=== PATIENT | male | born 1980 | race Caucasian/White ===

== ENCOUNTER → 2017-10-29 | Outpatient (CLI) | payer OTHER | END | disposition home or self-care (01) | LOC: MRI 12:35 | DX: M48.02 Spinal stenosis, cervical region (principal); M50.30 Other cervical disc degeneration, unspecified cervical region; G95.89 Other specified diseases of spinal cord; R20.0 Anesthesia of skin; Z98.1 Arthrodesis status | CPT/HCPCS: 72141 ==

== ENCOUNTER → 2018-01-28 | Outpatient (CLI) | payer OTHER, MEDICARE ==
[~2018-01-28] MED LIST: IOHEXOL 180 MG/ML 10 ML VIAL.; methylPREDNISolone ACETATE 40 MG/ML VIAL.; methylPREDNISolone ACETATE 80 MG/ML VIAL.
== END | disposition home or self-care (01) ==
LOC: PNCL 10:39
DX: M50.121 Cervical disc disorder at C4-C5 level with radiculopathy (principal); M48.02 Spinal stenosis, cervical region; Z98.1 Arthrodesis status; G82.20 Paraplegia, unspecified; F17.220 Nicotine dependence, chewing tobacco, uncomplicated; Z90.49 Acquired absence of other specified parts of digestive tract; Z98.890 Other specified postprocedural states; Z79.899 Other long term (current) drug therapy; Z83.3 Family history of diabetes mellitus; Z82.49 Family history of ischemic heart disease and other diseases of the circulatory system; Z72.89 Other problems related to lifestyle; M47.22 Other spondylosis with radiculopathy, cervical region
CPT/HCPCS: 62321; J1030; J1040; Q9965

== ENCOUNTER → 2018-02-12 | Outpatient (CLI) | payer OTHER, MEDICARE ==
[~2018-02-12] MED LIST changes: +LIDOCAINE 1% PF 2 ML VIAL.
== END ==
LOC: PNCL 09:17
DX: M48.02 Spinal stenosis, cervical region (principal); M54.12 Radiculopathy, cervical region; M96.1 Postlaminectomy syndrome, not elsewhere classified; Z90.49 Acquired absence of other specified parts of digestive tract; Z98.1 Arthrodesis status; Z83.3 Family history of diabetes mellitus; Z82.49 Family history of ischemic heart disease and other diseases of the circulatory system; Z79.899 Other long term (current) drug therapy
CPT/HCPCS: 62321; J1030; J1040; Q9965

== ENCOUNTER → 2018-07-07 | Outpatient (CLI) | payer OTHER, MEDICARE ==
[~2018-07-07] MED LIST changes: +BACL10TA IT INFUSIO; +CITA40TA12 PO; +IBUP-1060 PO; +IBUP1TAB12 PO; -IOHEXOL 180 MG/ML 10 ML VIAL.; +IOHEXOL 180 MG/ML 10 ML VIAL. ONE; -LIDOCAINE 1% PF 2 ML VIAL.; +LIDOCAINE 1% PF 2 ML VIAL. ONE; +OXYB5TAB7 PO; -methylPREDNISolone ACETATE 40 MG/ML VIAL.; +methylPREDNISolone ACETATE 40 MG/ML VIAL. ONE; -methylPREDNISolone ACETATE 80 MG/ML VIAL.; +methylPREDNISolone ACETATE 80 MG/ML VIAL. ONE
--- NOTE | 2018-07-07 13:32 | PAIN ---
DATE OF SERVICE: 07/07/2018 PROGRESS NOTE FOR PAIN CLINIC DIAGNOSES: Cervical radiculopathy with cervical spinal stenosis and post-cervical laminectomy syndrome. HISTORY OF PRESENT ILLNESS: The patient is a 38-year-old male who returns for followup status post cervical epidural steroid injection x 1 on 01/28/2018. The patient is doing very well after that with good reduction in pain by about 75%. The patient reports the pain has been returning now over the past month or so in the base of the neck, right shoulder and right upper extremity with some numbness and tingling, also some burning and aching pain in the base of the neck, becoming more constant, worse with reaching with the right upper extremity or weightbearing, repetitive motions, greater raising above his head with his right arm. The patient reports the pain is 8 on a scale of 10 at its worst, 6 on average, 4 at its least and it is a 6 today. The patient describes it as becoming more constant. Again, burning and aching in the right upper extremity, radiating into the posterior aspect of the upper arm and posterior aspect of the forearm and some tingling in the hand occasionally, but not every day. The patient reports no significant loss of function of the right upper extremity, but significant fatigability. PHYSICAL EXAMINATION: VITAL SIGNS: Today, the patient's blood pressure is 123/84, pulse 88, respirations 16 and temperature is 98.0 degrees Fahrenheit. Weight is 215 pounds. GENERAL: The patient is awake, alert, oriented, appropriate, very pleasant demeanor. HEENT EXAMINATION: Shows normocephalic, atraumatic. Extraocular movements are intact and symmetrical. Oral cavity, mucous membranes moist and pink. Dentition is intact. NECK: Shows anterior throat supple, without palpable lymphadenopathy noted. Swallow reflex is symmetrical. CHEST: Shows normal with inspection. Breath sounds are clear to auscultation bilaterally. HEART: Shows S1, S2 clear. No murmurs auscultated. ABDOMEN: Soft, nontender and nondistended. BACK: Shows spine grossly in the midline. Normal-appearing cervical lordotic curvature and thoracic kyphotic curvature. Cervical paraspinous muscle shows symmetrical on inspection. On palpation, it has some moderate tenderness, but only diffusely in the inferior aspect of the cervical paraspinous musculature as well as superior medial trapezius on the right as well, but only very mildly tender. The patient has full rotational motion of the cervical spine, both laterally as well as extension and forward flexion, without significant difficulty or pain reported. EXTREMITIES: Upper extremities show deep tendon reflexes at 2+ in the biceps and triceps tendons. Motor exam is approximately 4 on a scale of 5, but equal and symmetrical dorsal foot with kiln placer strength, bicep and tricep flexion. Peripheral pulses are 2+ radial distribution. No peripheral edema is noted. Shoulder shrug is strong and intact, without loss of strength and resistance bilaterally. Options were discussed with the patient. The patient's old chart was reviewed as was his current medication regimen updated. Current review of systems updated today as well. We will proceed with a cervical epidural steroid injection, the second in this series with fluoroscopic guidance today. Risks were again discussed including, but not limited to bleeding, infection, possibility of epidural hematoma and subsequent neurological compromise, dural puncture, headaches, spinal cord and/or nerve damage, side effects of steroid medication and poor results regarding pain control. The patient understands and wishes to proceed. The patient will return to the clinic in approximately 2 weeks for followup. He was counseled on his return appointment, activity level and side effects to be aware of. DIAGNOSES: Cervical radiculopathy with cervical spinal stenosis and post-cervical laminectomy syndrome. PROCEDURE: Cervical epidural steroid injection, translaminar approach C6-C7 level using C-arm fluoroscopic guidance under sterile prep and drape using local anesthetic. MEDICATION INJECTED: A total of 120 mg Depo-Medrol plus 5 mL of preservative-free normal saline and 2 mL of Isovue for contrast. CONDITION AT DISCHARGE: Stable. The patient tolerated the procedure well, had no complications. PERRY TEJEDA MD DR: MADHURI/brittany JOB#: [id number] / [id number]
== END | disposition home or self-care (01) ==
LOC: PNCL 08:57
PROVIDERS: ATTEND Anesthesiology
DX: M48.02 Spinal stenosis, cervical region (principal); M54.12 Radiculopathy, cervical region; M96.1 Postlaminectomy syndrome, not elsewhere classified
CPT/HCPCS: 62321; J1030; J1040; Q9965

== ENCOUNTER → 2018-09-30 | Outpatient (CLI) | payer OTHER, MEDICARE ==
[~2018-09-30] MED LIST changes: -IOHEXOL 180 MG/ML 10 ML VIAL. ONE; -LIDOCAINE 1% PF 2 ML VIAL. ONE; -methylPREDNISolone ACETATE 40 MG/ML VIAL. ONE; -methylPREDNISolone ACETATE 80 MG/ML VIAL. ONE
--- NOTE | 2018-09-30 16:14 | PAIN ---
DATE OF SERVICE: 09/30/2018 DIAGNOSES: 1. Cervical radiculopathy with cervical spinal stenosis and post-cervical laminectomy syndrome. 2. Spasticity with intrathecal pump therapy. HISTORY OF PRESENT ILLNESS: The patient is a 38-year-old male who returns for followup status post cervical epidural steroid injections, last seen 07/07/2018, which the patient did very well with about 75% improvement, decreased pain in the right arm and neck. The patient reports that now is about 20% overall improvement, still doing well, still some pain in the base of the neck and right upper extremity. The patient reports pain is 8 on a scale of 10 at its worst, 5 on average and a 3 at its least. The patient reports it is tingling, burning, shooting, radiating, becoming more noticeable, more severe. The patient reports it is worse with activity, sleeping on his right side, reaching over his right arm, with repetitive motions such as steering or driving a car. The patient reports no new motor or sensory deficits, also complains of still some musculature tightness. The patient has a baclofen pump, which he refilled just about 3 weeks ago and his muscles feel tight that is not standard with the pump adjustment and requests interrogation and adjustment with that today as well with increased spasticity. PHYSICAL EXAMINATION: VITAL SIGNS: The patient's blood pressure 112/74, pulse 80, respirations 18, temperature is 97.6 degrees Fahrenheit. GENERAL: The patient is awake, alert, oriented, appropriate, very pleasant demeanor. The patient is accompanied by his spouse. HEENT: Shows normocephalic, atraumatic. Extraocular movements intact and symmetrical. Oral cavity: Mucous membranes moist and pink. Dentition is intact. NECK: Shows anterior throat supple without palpable lymphadenopathy noted. Swallow reflex is symmetrical. CHEST: Shows normal on inspection. Breath sounds are clear to auscultation bilaterally. HEART: Shows S1, S2 clear. No murmurs auscultated. ABDOMEN: Soft, nontender, nondistended. Easily palpable intrathecal pump is noted in the right lower quadrant with well-healed surgical scar as previously noted, which is mobile, but nontender. BACK: The patient's back shows grossly midline spine, normal-appearing cervical lordotic curvature and thoracic kyphotic curvature. Cervical paraspinous musculature shows symmetrical with inspection, with palpation shows some moderate tenderness diffusely in the inferior aspect of the paraspinous musculature bilaterally, slightly more on the right than the left into the superior trapezius, but without radiation, without trigger points. The patient has good rotational motion of cervical spine without difficulty as well. EXTREMITIES: The patient's upper extremities show deep tendon reflexes 2+ in the biceps and triceps tendons. Motor exam is a 4 on a scale of 5 with spouting installer strength, bicep and tricep flexion, but symmetrical. Peripheral pulses are 2+ radial distribution. No peripheral edema is noted bilaterally. Options were discussed with the patient. The patient's old chart was reviewed as his current medication regimen updated. Current review of systems updated today as well. We will interrogate the patient's intrathecal pump and make adjustments to increase the basal rate from 5 mcg per hour to 8 mcg per hour. Also, change the Flex programming for longer duration, instead of only 3 hours starting at 4:00 a.m., it will be 8 hours starting at 4:00 a.m. and instead of 3 hours starting at 7:00 p.m., it will be 5 hours starting at 7:00 p.m., for increased total daily dose from 137.9 mcg a day to 145.1 mcg per day. This will change the patient's refill date to 05/12/2019. The patient will be given a copy of the printout as well to keep with him for his pump adjustment and current settings. The patient will follow up in approximately 1 month or sooner if necessary for any additional adjustment. We will plan on cervical epidural steroid injection once the patient returns for the radicular pain. He will be out of town prior to that, and we will have him follow up once he returns and plan on cervical epidural steroid injection on his next visit. PERRY TEJEDA MD DR: MADHURI/brittany JOB#: [id number] / [id number]
== END | disposition home or self-care (01) ==
LOC: PNCL 13:18
PROVIDERS: ATTEND Anesthesiology
DX: M54.12 Radiculopathy, cervical region (principal); M48.02 Spinal stenosis, cervical region; M96.1 Postlaminectomy syndrome, not elsewhere classified; R25.2 Cramp and spasm
CPT/HCPCS: G0463

== ENCOUNTER → 2018-10-30 | Outpatient (CLI) | payer OTHER, MEDICARE ==
[2018-10-30 10:55] LABS: BASO % 1 % (0-3); EOS # 0.2 x10^3/uL (0.0-0.7); EOS % 4 % (0-3); HEMATOCRIT 42.7 % (39.0-53.0); HEMOGLOBIN 14.5 g/dL (13.0-17.5); LYMPH # 1.7 x10^3/uL (1.0-4.8); LYMPH % 31 % (24-48); MEAN CORPUSCULAR HEMOGLOBIN 31 pg (25-35); MEAN CORPUSCULAR HGB CONC 34 g/dL (31-37); MEAN CORPUSCULAR VOLUME 91 fL (79-100); MONO # 0.5 x10^3/uL (0.0-1.1); MONO % 9 % (0-9); NEUT # 3.1 x10^3uL (1.8-7.7); NEUT % 55 % (31-73); PLATELET COUNT 188 x10^3/uL (140-400); RED BLOOD COUNT 4.71 x10^6/uL (4.30-5.70); RED CELL DISTRIBUTION WIDTH 12.6 % (11.5-14.5); WHITE BLOOD COUNT 5.6 x10^3/uL (4.0-11.0)
[2018-10-30 16:14] LABS: FSH 3.5 mIU/mL (1.5-12.4); LUTEINIZING HORMONE 2.6 mIU/mL (1.7-8.6); PROLACTIN 8.1 ng/mL (4.0-15.2)
[2018-11-02 10:09] LABS: TESTOSTERONE FREE 5.38 ng/dL (5.00-21.00); TESTOSTERONE TOTAL 276 ng/dL (264-916)
== END | disposition home or self-care (01) ==
LOC: LAB 10:35
PROVIDERS: ATTEND Family Medicine
DX: E29.1 Testicular hypofunction (principal)
CPT/HCPCS: 36415; 82670; 83001; 83002; 84146; 84402; 84403; 85025

== ENCOUNTER → 2018-11-17 | Outpatient (CLI) | payer OTHER, MEDICARE ==
[~2018-11-17] MED LIST changes: +IOHEXOL 180 MG/ML 10 ML VIAL. ONE; +methylPREDNISolone ACETATE 40 MG/ML VIAL. ONE; +methylPREDNISolone ACETATE 80 MG/ML VIAL. ONE
--- NOTE | 2018-11-17 23:36 | PAIN ---
DATE OF SERVICE: 11/17/2018 PROGRESS NOTE FOR PAIN CLINIC DIAGNOSES: 1. Cervical radiculopathy with cervical spinal stenosis and post-cervical laminectomy syndrome. 2. Spasticity with intrathecal baclofen pump therapy. HISTORY OF PRESENT ILLNESS: The patient is a 38-year-old male who returns for followup status post pump reprogramming and returns today for a cervical epidural steroid injection we discussed on his last visit, did very well after the first injection with about 75% improvement initially in the right shoulder and arm. The patient reports pain is returning now, becoming more noticeable with repetitive motion of the right arm, transferring from bed to wheelchair, etc. The patient reports it is an 8 on a scale of 10 at its worst, 5 on average and 3 at its least and is a 3 today. The patient reports it is tingling, burning, sharp, shooting into the right arm, posterior shoulder, superior shoulder, lateral and posterior upper arm as well and some numbness and tingling in the right hand. The patient reports no new motor or sensory deficits and no new changes. Doing much better with the flex program, which we had started after his last pump programming and has quite pleased with that. The patient reports that her abilities with doing activities at home traveling with much greater ease and comfort, sleeping better at night. PHYSICAL EXAMINATION: VITAL SIGNS: The patient's blood pressure 129/82, pulse 90, respirations 20 and temperature 98.1 degrees Fahrenheit. Height is 6 feet 3 inches and weight is 220 pounds. GENERAL: The patient is awake, alert, oriented, appropriate and very pleasant demeanor. HEENT: Shows normocephalic and atraumatic. Extraocular movements are intact and symmetrical. Oral cavity: Mucous membranes moist and pink. Dentition is intact. NECK: Shows anterior throat supple without palpable lymphadenopathy noted. Swallow reflex symmetrical. CHEST: Shows normal with inspection. Breath sounds clear to auscultation bilaterally. HEART: Shows S1 and S2 clear. No murmurs auscultated. ABDOMEN: Soft, nontender and nondistended. No palpable organomegaly is noted. No rebound or guarding demonstrated. BACK: The patient's back shows spine grossly in the midline. Well-healed surgical scar is noted anterior aspect of the cervical spine as well as in the lumbar spine. Cervical paraspinous muscle shows symmetrical on inspection, with palpation shows some moderate tenderness but only diffusely, more on the right than the left in the inferior aspect of the cervical paraspinous muscles and superior medial trapezius without trigger points. The patient has full rotational motion of the cervical spine, both laterally as well as extension and flexion without significant difficulty or pain reported. EXTREMITIES: Upper extremities show deep tendon reflexes 2+ in the biceps and triceps tendons. Motor exam is approximately 4 on a scale of 5 but equal and symmetrical with some decreased strength in the right side greater than left with bouffant curtain machine tender strength only. Options were discussed with the patient. The patient's old chart was reviewed as well as his current medication regimen updated. Current review of systems updated today as well and we will proceed with a cervical epidural steroid injection today with fluoroscopic guidance. Risks were again discussed including, but not limited to bleeding, infection, possibility of epidural hematoma, subsequent neurological compromise, dural puncture, headaches, spinal cord and/or nerve damage, side effects of steroid medication and poor results regarding pain control. The patient understands and wished to proceed. The patient will return to the clinic in approximately 2 weeks for followup, was counseled as to return appointment, activity level and side effects to be aware of. The patient is also given refill prescription for hydrocodone 5/325, twenty tablets also baclofen 10 mg to use up to 4 times daily as needed for spasticity. DIAGNOSES: Cervical radiculopathy with cervical spinal stenosis and cervical post-laminectomy syndrome. PROCEDURE: Cervical epidural steroid injection, translaminar approach at C6-C7 level using C-arm fluoroscopic guidance under sterile prep and drape using local anesthetic. MEDICATION INJECTED: A total of 120 mg Depo-Medrol plus 5 mL of preservative-free normal saline and 2 mL of Isovue for contrast. CONDITION AT DISCHARGE: Stable. The patient tolerated the procedure well and had no complications. PERRY TEJEDA MD DR: MADHURI/brittany JOB#: [id number] / [id number]
== END | disposition home or self-care (01) ==
LOC: PNCL 10:35
PROVIDERS: ATTEND Anesthesiology
DX: M48.061 Spinal stenosis, lumbar region without neurogenic claudication (principal); M54.12 Radiculopathy, cervical region; M96.1 Postlaminectomy syndrome, not elsewhere classified
CPT/HCPCS: 62321; J1030; J1040; Q9965

== ENCOUNTER → 2019-01-12 | Outpatient (CLI) | payer OTHER, MEDICARE ==
[~2019-01-12] MED LIST changes: -IOHEXOL 180 MG/ML 10 ML VIAL. ONE; -methylPREDNISolone ACETATE 40 MG/ML VIAL. ONE; -methylPREDNISolone ACETATE 80 MG/ML VIAL. ONE
[2019-01-12 10:45] LABS: BASO % 1 % (0-3); EOS # 0.2 x10^3/uL (0.0-0.7); EOS % 4 % (0-3); HEMATOCRIT 41.9 % (39.0-53.0); HEMOGLOBIN 14.3 g/dL (13.0-17.5); LYMPH # 1.6 x10^3/uL (1.0-4.8); LYMPH % 28 % (24-48); MEAN CORPUSCULAR HEMOGLOBIN 31 pg (25-35); MEAN CORPUSCULAR HGB CONC 34 g/dL (31-37); MEAN CORPUSCULAR VOLUME 92 fL (79-100); MONO # 0.6 x10^3/uL (0.0-1.1); MONO % 10 % (0-9); NEUT # 3.4 x10^3uL (1.8-7.7); NEUT % 58 % (31-73); PLATELET COUNT 190 x10^3/uL (140-400); RED BLOOD COUNT 4.57 x10^6/uL (4.30-5.70); RED CELL DISTRIBUTION WIDTH 14.6 % (11.5-14.5); WHITE BLOOD COUNT 5.8 x10^3/uL (4.0-11.0)
[2019-01-12 11:08] LABS: ALBUMIN 4.4 g/dL (3.4-5.0); DIRECT BILIRUBIN 0.1 mg/dL (0.0-0.2); TOTAL BILIRUBIN 0.4 mg/dL (0.2-1.0); TOTAL PROTEIN 7.7 g/dL (6.4-8.2)
[2019-01-12 19:09] LABS: TESTOSTERONE TOTAL 252 ng/dL (264-916)
== END | disposition home or self-care (01) ==
LOC: LAB 10:24
PROVIDERS: ATTEND Urology
DX: E29.9 Testicular dysfunction, unspecified (principal)
CPT/HCPCS: 36415; 80076; 84403; 85025

== ENCOUNTER → 2019-05-19 | Outpatient (CLI) | payer OTHER, MEDICARE ==
[~2019-05-19] MED LIST changes: +BACLOFEN IT ONE; +[UNRECOGNIZED DRUG - OTHER] IT ONE
--- NOTE | 2019-05-20 01:59 | PAIN ---
DATE OF SERVICE: 05/19/2019 PROGRESS NOTE FOR PAIN CLINIC DIAGNOSES: 1. Cervical radiculopathy with cervical spinal stenosis, post-cervical laminectomy syndrome. 2. Spasticity with intrathecal pump treatment. HISTORY OF PRESENT ILLNESS: The patient is a 39-year-old male who returns for followup status post intrathecal pump refill and reprogramming with flex programming done. The patient reports that the flex programming is perfectly placed. He feels very good with the control of spasticity and has during the day as well as at night with the way to flex programming is program right now with the pump. The patient reports some pain in the base of the neck and right shoulder, otherwise doing very well with spasticity. The patient reports it is tingling, burning pain in the right shoulder and arm is becoming more constant with activity, better with the hydrocodone, however. The patient reports pain is 7 on a scale of 10 at its worst in the past week, 5 on average and 3 at its least and is a 3 today. The patient reports no new changes, no new motor or sensory deficits, no new spasticity issues, no new side effects from his pump or otherwise. PHYSICAL EXAMINATION: VITAL SIGNS: The patient's blood pressure is 116/70, pulse 77, respirations 18, temperature 97.8 degrees Fahrenheit, height is 6 feet 3 inches. GENERAL: The patient is awake, alert, oriented, appropriate, very pleasant demeanor. HEENT: Head is normocephalic and atraumatic. Extraocular movements are intact and symmetrical. Oral cavity: Mucous membranes moist and pink. Dentition intact. NECK: Shows anterior throat supple CHEST: Shows normal on inspection. Breath sounds clear to auscultation bilaterally. HEART: Shows S1, S2 clear. ABDOMEN: Soft, nontender, nondistended. Easily palpable intrathecal pump is noted in the right lower quadrant with well-healed surgical scar noted, which is mobile, but nontender. Options were discussed with the patient. The patient's old chart was reviewed as his current medication regimen updated. Current review of systems updated today as well. We will refill the patient's intrathecal pump with reprogramming for flex program as well as volume. Risks were discussed including, but not limited to bleeding, infection, possibility of intravascular injection or extravasation from the pump with resuscitative measures necessary. The patient understands as well as poor results regarding pain control. The patient understands and wished to proceed. The patient will return to clinic for a pump refill prior to 02/03/2020. Also discussed the estimated remaining life span of the pump, which is about 12 months, also had some choice in timing with getting the pump replaced. The patient will consider this as well prior to his next pump refill and will have that replaced within the year as well. The patient will follow up as necessary at this point and for refill as noted. DIAGNOSES: Spasticity with a cervical radiculopathy, cervical spinal stenosis, post-cervical laminectomy syndrome. PROCEDURE: Intrathecal pump refill and reprogramming under sterile prep and drape using a Mimoco kit, a 22-gauge noncutting needle, pump was entered without difficulty. 4 mL of the old medication was removed and discarded. 40 mL of the new medication containing baclofen 1000 mcg/mL was replaced in the pump. Sterile needle was withdrawn and bandage was applied. Pump was then reprogrammed to flex settings as well as volume. CONDITION AT DISCHARGE: Stable. The patient tolerated the procedure well, had no complications. PERRY TEJEDA MD DR: MADHURI/brittany JOB#: [id number] / [id number]
== END ==
LOC: PNCL 12:07
PROVIDERS: ATTEND Anesthesiology
DX: M50.10 Cervical disc disorder with radiculopathy, unspecified cervical region (principal); M48.02 Spinal stenosis, cervical region; M96.1 Postlaminectomy syndrome, not elsewhere classified
CPT/HCPCS: 95991; J0475

== ENCOUNTER → 2019-05-19 | Outpatient (CLI) | payer OTHER, MEDICARE ==
[~2019-05-19] MED LIST changes: -BACLOFEN IT ONE; -[UNRECOGNIZED DRUG - OTHER] IT ONE
[2019-05-20 03:08] LABS: ESTRADIOL LEVEL 31.1 pg/mL (7.6-42.6)
== END | disposition home or self-care (01) ==
LOC: LAB 12:23
PROVIDERS: ATTEND Family Medicine
DX: E29.1 Testicular hypofunction (principal)
CPT/HCPCS: 36415; 82670; 84402; 84403

== ENCOUNTER → 2019-10-14 | Outpatient (CLI) | payer OTHER, MEDICARE ==
[~2019-10-14] MED LIST changes: +CLOM50TA16 PO; +MELA10TA10 SL; +OXYB5TAB10 PO; -OXYB5TAB7 PO
[2019-10-14 10:55] LABS: HEMATOCRIT 44.6 % (39.0-53.0); HEMOGLOBIN 15.5 g/dL (13.0-17.5); RED BLOOD COUNT 5.2 x10^6/uL (4.30-5.70); RED CELL DISTRIBUTION WIDTH 13.2 % (11.5-14.5); WHITE BLOOD COUNT 5.6 x10^3/uL (4.0-11.0)
[2019-10-14 11:11] LABS: ALBUMIN 4.3 g/dL (3.4-5.0); ALBUMIN/GLOBULIN RATIO 1.7 (1.0-1.7); CALCIUM 9.2 mg/dL (8.5-10.1); GFR 84.1; POTASSIUM 4.1 mmol/L (3.5-5.1); TOTAL BILIRUBIN 0.5 mg/dL (0.2-1.0); TOTAL PROTEIN 6.9 g/dL (6.4-8.2)
[2019-10-14 11:12] LABS: CHOLESTEROL/HDL RATIO 5.6
== END | disposition home or self-care (01) ==
LOC: LAB 10:32
PROVIDERS: ATTEND Family Medicine
DX: N32.89 Other specified disorders of bladder (principal); F32.9 Major depressive disorder, single episode, unspecified; G89.29 Other chronic pain
CPT/HCPCS: 36415; 80053; 80061; 85027

== ENCOUNTER → 2019-10-14 | Outpatient (CLI) | payer OTHER, MEDICARE ==
--- NOTE | 2019-10-14 11:04 | PAIN ---
DATE OF SERVICE: 10/14/2019 PROGRESS NOTE FOR PAIN CLINIC DIAGNOSES: 1. Cervical radiculopathy with cervical spinal stenosis, post-cervical laminectomy syndrome. 2. Spasticity with intrathecal pump therapy. SUBJECTIVE: The patient is a 39-year-old male who returns for followup status post intrathecal pump interrogation and cervical epidural steroid injections. The patient was last seen, 05/19/2019 for intrathecal baclofen pump refill. The patient reports he is doing fairly well with this, has been on very stable regimen with the baclofen. He also has oral baclofen, which he can take occasionally, but generally is not needed. He is on the flex programming scheduled with the intrathecal pump. The patient reports still pain in the base of neck and right upper extremity, rated as 7 on a scale of 10. It is worst over the past week 4 and average 2 at its least and is 2 today. The patient reports it is sharp and shooting, tingling, burning, becoming more constant in the right arm. The patient reports no new motor or sensory deficits, however, still significant spasticity, which is well controlled with intrathecal pump of baclofen. The patient reports no new motor or sensory deficits, better with sitting or lying down, does not awaken him from sleep generally. PHYSICAL EXAMINATION: VITAL SIGNS: The patient's blood pressure 109/49, pulse 58, respirations 18, temperature 98.2 degrees Fahrenheit, height 6 feet 3 inches and weight is 210 pounds. GENERAL: The patient is awake, alert, oriented, appropriate, very pleasant demeanor. HEENT: Shows normocephalic, atraumatic. Extraocular movements are intact and symmetrical. Oral cavity: Mucous membranes are moist and pink. Dentition is intact. NECK: Shows anterior throat is supple without palpable lymphadenopathy noted. Swallow reflex symmetrical. CHEST: Shows normal on inspection. Breath sounds clear to auscultation bilaterally. HEART: Shows S1, S2 clear. No murmurs auscultated. ABDOMEN: Soft, nontender, nondistended. Easily palpable intrathecal pump in the right lower quadrant with well-healed surgical scars noted, it is nontender. BACK: The patient's back shows spine grossly in midline. Cervical paraspinous muscle shows symmetrical on inspection with palpation shows some moderate tenderness diffusely bilaterally going diffusely without significant radiation. The patient's back shows normal thoracic kyphosis, some minor flattening of lumbar lordotic curvature. EXTREMITIES: The patient's upper extremities show deep tendon reflexes 2+ in the biceps and triceps tendons. Motor exam is strong with approximately 4 on a scale of 5, but equal and symmetrical with paper bag maker strength, bicep and tricep flexion. Peripheral pulses are 2+ posterior tibial and 2+ radial. No peripheral edema is noted. PLAN: Options were discussed with the patient. The patient's old chart was reviewed as his current medication regimen updated. Current review of systems updated today as well and we will proceed with scheduling the patient for intrathecal pump replacement as on interrogation with the patient's pump today shows a 7-month or less of battery life remaining on intrathecal pump. We will schedule this with surgery within the next 3-4 weeks to have replaced with [employer] intrathecal pump for baclofen programming to be scheduled as well. The patient understands and agrees and will follow up once the surgical appointment is confirmed. The patient is going for pretesting as well for lab work today. Also, we will utilize those for his upcoming surgery as well. PERRY TEJEDA MD DR: MADHURI/brittany JOB#: [id number] / [id number]
== END | disposition home or self-care (01) ==
LOC: PNCL 09:03
PROVIDERS: ATTEND Anesthesiology
DX: M48.02 Spinal stenosis, cervical region (principal); M54.12 Radiculopathy, cervical region; M96.1 Postlaminectomy syndrome, not elsewhere classified; R25.2 Cramp and spasm
CPT/HCPCS: G0463

== ENCOUNTER 2019-11-06 10:34 | Day surgery (SDC) | payer OTHER, MEDICARE ==
[~2019-11-06 10:34] MED LIST changes: +BACLOFEN IT ONE; +HYDROmorphone 2 MG/ML VIAL IV PRN; +IV RINGERS,LACTATED 1000ML 1,000 ML IV SCH; +LIDOCAINE 1% PF 2 ML VIAL. ID PRN; +MORPHINE SULFATE 2 MG/ML VIAL. IV PRN; +ONDANSETRON PF 4 MG/2 ML VIAL. IV PRN; +PROCHLORPERAZINE 10 MG/2 ML VIAL. IV PRN; +[UNRECOGNIZED DRUG - OTHER] IT ONE; +fentaNYL PF VIAL 100 MCG/2 ML VIAL IV PRN
[2019-11-06] MEDS ORDERED: LIDOCAINE 1%/EPI 1:100,000 20 ML VIAL. ONE (11:05)
[2019-11-06] MEDS ORDERED: fentaNYL PF VIAL 100 MCG/2 ML VIAL ONE (11:32)
[2019-11-06] MEDS ORDERED: ONDANSETRON PF 4 MG/2 ML VIAL. ONE (11:32)
[2019-11-06] MEDS ORDERED: PROPOFOL 20 ML IV ONE (11:32)
[2019-11-06] MEDS ORDERED: LIDOCAINE 2% PF 5 ML VIAL. ONE (11:32)
[2019-11-06] MEDS ORDERED: DEXAMETHASONE SOD PHOS 4 MG/ML VIAL ONE (11:32)
[2019-11-06] MEDS ORDERED: MIDAZOLAM HCL/PF 2 MG/2 ML VIAL. ONE (11:33)
[2019-11-06] MEDS ORDERED: GLYCOPYRROLATE 1 MG/5 ML VIAL. ONE (11:49)
--- NOTE | 2019-11-06 13:15 | DISCH ---
DISCHARGE INSTRUCTIONS Condition on Discharge Condition on Discharge: Stable Activity After Discharge Activity Instructions for Disc: Activity as tolerated Lifting Instructions after Dis: No heavy lifting Driving Instructions after Dis: Do not drive today Diet after Discharge Diet after Discharge: Regular Wound Incision Care Wound/Incision Care: Reinforce dressing PRN Contacting the DR. after DC Call your doctor for: Concerns you may have PERRY TEJEDA MD Nov 06, 2019 13:15
[2019-11-06] MEDS: fentaNYL PF VIAL 100 MCG/2 ML VIAL IV PRN ×2 (13:26→13:42)
--- NOTE | 2019-11-06 13:36 | PDOC4 ---
OPERATIVE NOTE Date: Date: Nov 05, 2019 Pre-Op Diagnosis: Spasticity with intrathecal pump malfunction/end of battery life Post-Op Diagnosis: same Procedure Performed: Removal and replacement intrathecal pump Surgeon: Herson Anesthesia Type: General Blood Loss: approx. 10cc Specimans Obtained: old intrathecal pump Findings: see dictation #[id number] Complications: none Operative Note: see dictation PERRY TEJEDA MD Nov 06, 2019 13:36
[2019-11-06 13:50] VITALS: BP 113/58
--- NOTE | 2019-11-06 22:20 | OP ---
DATE OF SURGERY: 11/06/2019 PREOPERATIVE DIAGNOSES: Spasticity with intrathecal pump malfunction, end of battery life on implanted device. POSTOPERATIVE DIAGNOSES: Spasticity with intrathecal pump malfunction, end of battery life on implanted device. PROCEDURE: Removal and replacement of intrathecal pump. ANESTHESIA: General. BLOOD LOSS: Approximately 10 mL. COMPLICATIONS: None. DESCRIPTION OF PROCEDURE: The patient was consented for intrathecal pump removal and replacement. Risks were discussed with he and his spouse including, but not limited to bleeding, infection, possibility of extravasation of intrathecal pump material as well as poor function postoperatively and poor spasticity and pain control. The patient understands and wishes to proceed. The patient was taken to operating room #6 and general anesthesia was induced with the patient in the supine position with pressure points padded. The patient was prepped and draped in a sterile fashion allowing 3 minutes for the prep to dry prior to draping. The patient's left lower quadrant was examined with easily palpable intrathecal pump under prepped the area using 1% lidocaine without epinephrine. Area approximately 3 cm inferior to the preexisting abdominal scar was instilled with lidocaine and then using a 10 blade scalpel was incised through the area in a transverse oblique fashion underneath the existing scar over the intrathecal pump using both sharp and dull dissection and pressure and irrigation for control of local hemorrhage. The incision was extended down through the fascia to expose the intrathecal pump, which was exposed without difficulty. Sutures were cut anchoring the pump in the superior aspect in the pocket, scar tissue was removed with both blunt and dull dissection. The pump was expressed outside of the pocket cavity, examined and the intrathecal catheter was then removed with the quick release fitting with compression and twisting, came off without difficulty. Did show a good return of fluid from the catheter itself. No leaks. Catheter was examined without any defects identified. New pump was then primed and set with baclofen on current flex schedule programming for delivery, was then connected to the intrathecal catheter. Pocket was then irrigated with saline irrigation x 3. Examined without any local hemorrhage identified. New pump was placed into the pocket with the diaphragm facing outwards using a 0 silk suture x 2. The anchoring (on the superior aspect of the pump) was then sutured to the posterior aspect of the pocket wall in approximately 2 o'clock and 10 o'clock positions. The pocket was then closed with 2-0 Vicryl in an interrupted fashion for the deep fascia and then 3-0 Vicryl in a running fashion for the subcutaneous fascia and then 3-0 running Vicryl for skin closure with good opposition of the wound edges. Sterile bandages, Steri-Strip and island dressing were then applied. The patient tolerated procedure well, had no immediate complications and was transferred to the recovery room in awake, alert, and stable condition. The patient will follow up in approximately 1 week for wound check or sooner if necessary. PERRY TEJEDA MD DR: MADHURI/brittany JOB#: [id number] / [id number]
== END 2019-11-06 14:05 | disposition home or self-care (01) ==
LOC: SURG 10:34
PROVIDERS: ATTEND Anesthesiology
DX: T85.610A Breakdown (mechanical) of cranial or spinal infusion catheter, initial encounter (principal); F32.9 Major depressive disorder, single episode, unspecified; E66.9 Obesity, unspecified; Z68.37 Body mass index [BMI] 37.0-37.9, adult; Z90.49 Acquired absence of other specified parts of digestive tract; Y83.8 Other surgical procedures as the cause of abnormal reaction of the patient, or of later complication, without mention of misadventure at the time of the procedure; Y92.89 Other specified places as the place of occurrence of the external cause
CPT/HCPCS: 62362; A7015; C1772; J0475; J0696; J1100; J2001; J2250; J2405; J2704; J3010; J3490

== ENCOUNTER → 2019-11-13 | Outpatient (CLI) | payer OTHER, MEDICARE ==
[2019-11-06 13:50] VITALS: BP 113/58
[~2019-11-13] MED LIST changes: -BACLOFEN IT ONE; -HYDROmorphone 2 MG/ML VIAL IV PRN; -IV RINGERS,LACTATED 1000ML 1,000 ML IV SCH; -LIDOCAINE 1% PF 2 ML VIAL. ID PRN; -MORPHINE SULFATE 2 MG/ML VIAL. IV PRN; -ONDANSETRON PF 4 MG/2 ML VIAL. IV PRN; +OXYC1TAB19 PO; -PROCHLORPERAZINE 10 MG/2 ML VIAL. IV PRN; -[UNRECOGNIZED DRUG - OTHER] IT ONE; -fentaNYL PF VIAL 100 MCG/2 ML VIAL IV PRN
--- NOTE | 2019-11-13 12:25 | PAIN ---
DATE OF SERVICE: 11/13/2019 PROGRESS NOTE FOR PAIN CLINIC DIAGNOSES: 1. Cervical radiculopathy with cervical spinal stenosis, post-cervical laminectomy syndrome. 2. Spasticity with intrathecal pump baclofen therapy. HISTORY OF PRESENT ILLNESS: The patient is a 39-year-old male who returns for followup status post intrathecal pump replacement 1 week ago. The patient is doing very well, reports a significant improvement with the baclofen pump and no increased spasticity. The patient is still on a flex program with his intrathecal pump and doing very well, healing well with some incisional pain at the right lower quadrant at the site of the replacement of the pump, but otherwise no new changes or other concerns. The patient reports sore which is awakening him from sleep occasionally in the right lower quadrant, also some pain in the right arm and shoulder as he had previously. The patient reports the pain is 7 on a scale of 10 at its worst over the past week, 5 on average, 3 at its least and is a 5 today. The patient reports it is aching, sharp, tingling, burning in the arm and some aching in the abdomen from the incision. The patient reports no new motor or sensory deficits, no new changes. PHYSICAL EXAMINATION: VITAL SIGNS: His blood pressure is 115/79, pulse 84, respirations 20, temperature is 98.1, and weight is 204 pounds. GENERAL: The patient is awake, alert, oriented, appropriate, very pleasant demeanor. HEENT: Shows normocephalic and atraumatic. Extraocular movements are intact and symmetrical. Oral cavity shows mucous membranes moist and pink. Dentition is intact. NECK: Shows anterior throat is supple without palpable lymphadenopathy noted. Swallow reflex symmetrical. CHEST: Shows normal on inspection. Breath sounds are clear to auscultation bilaterally. HEART: Shows S1 and S2 clear. No murmurs auscultated. BACK: The patient's abdomen shows Steri-Strips on recent incision in the right lower quadrant with easily palpable intrathecal pump beneath which is nonerythematous, no discharge, no significant soreness or tenderness. No discoloration, no erythema or drainage. Steri-Strips are still in place and appears to be healing well at this time. PLAN: Options were discussed with the patient. The patient's old chart was reviewed as his current medication regimen updated. Current review of systems updated today as well and we will scan the patient's intrathecal pump today showing that refill be 07/02/2020. The patient will return in the meantime for cervical radiculopathy treatment if necessary. We would like to hold on this at this time and call for his next appointment. The patient will follow up with the pump or any complications of the wound or any questions on as needed basis at this time as well. PERRY TEJEDA MD DR: MADHURI/brittany JOB#: [id number] / [id number]
== END ==
LOC: PNCL 10:09
PROVIDERS: ATTEND Anesthesiology
DX: M54.12 Radiculopathy, cervical region (principal); M48.02 Spinal stenosis, cervical region; R25.2 Cramp and spasm
CPT/HCPCS: G0463

== ENCOUNTER 2020-02-12 09:34 | Emergency (ER) | payer OTHER, MEDICARE ==
[~2020-02-12] VITALS: Ht 190.5 cm; Wt 95.4 kg
[2020-02-12 09:36] VITALS: BP 118/64
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
[2020-02-12] MEDS ORDERED: CYCL5TAB PO (10:28)
== END 2020-02-12 10:33 | disposition home or self-care (01) ==
LOC: ER 09:34
DX: S29.012A Strain of muscle and tendon of back wall of thorax, initial encounter (principal); F32.9 Major depressive disorder, single episode, unspecified; Z98.890 Other specified postprocedural states; V49.9XXA Car occupant (driver) (passenger) injured in unspecified traffic accident, initial encounter; Y93.89 Activity, other specified; Y92.413 State road as the place of occurrence of the external cause; Y99.8 Other external cause status
CPT/HCPCS: 99283

== ENCOUNTER → 2020-06-01 | Outpatient (CLI) | payer OTHER, MEDICARE ==
[~2020-06-01] MED LIST changes: +CYCL5TAB PO; +DESV100T PO; +HYDR-2765 PO
--- NOTE | 2020-06-01 09:23 | PDOC ---
Progress Note - Pain Clinic Date of Service: DOS: DATE: 06/01/20 TIME: 09:17 Diagnosis: Dx: Radiculopathy with cervical spinal stenosis and cervical postlaminectomy syndrome Spasticity with intrathecal baclofen pump therapy History or Present Illness: HPI: 32-year-old male returns follow-up status post intrathecal pump management as well as cervical epidural steroid injections. Last seen November 13, 2019 after replacement of intrathecal pump. Patient reports he doing very well reports that over the past 4 weeks or so the pain is becoming more noticeable on the abdomen at the site of the pump itself and has had some skin breakdown over it as well over the past month or so. Patient reports he is treated this himself with some topical antibiotic ointments and bandages but is coming more painful and red around the lateral aspect of the pump. Reports no injury to the area of the abdomen or rubbing or anything that he can think of that may have caused some skin breakdown over the pump itself. Patient reports otherwise doing fairly well still some pain in the base of the neck and the right upper extremity but this is secondary to the abdominal pain and pump situation. Physical Exam: VS: Blood pressure is 120/76 pulse 76 respirations 18 temperature 97.9 F weight is 215 pounds PE: PHYSICAL EXAMINATION: GENERAL: The patient is awake, alert, oriented, appropriate, very pleasant demeanor, patient accompanied by his spouse. Patient is in wheelchair secondary to partial paralysis. HEENT: Shows normocephalic, atraumatic. Extraocular movements are intact and symmetrical. Oral cavity: Mucous membranes moist and pink. NECK: Shows anterior throat supple without palpable lymphadenopathy noted. Swallow reflex symmetrical. CHEST: Shows normal on inspection. Breath sounds are clear bilaterally. HEART: Shows S1, S2 clear. No murmurs auscultated. ABDOMEN: Soft, nontender, nondistended. No palpable organomegaly is noted. No rebound or guarding demonstrated. Patient has easily then a viable right lower quadrant intrathecal pump which shows some erythematous change on the lateral aspect of the pump edge itself. Is very tender with palpation and displacement of the pump on the lateral edge. He also has a healed scab over the lateral aspect of the pump as well. Patient shows no drainage with some mild erythema around the lateral edge only but not the medial edge. BACK: Shows spine grossly in the midline. Normal-appearing cervical lordotic curvature, cervical spine shows good rotation motion both laterally as well as extension flexion without significant increase in pain. There is slightly increased thoracic kyphosis, some minor flattening of the lumbar lordotic curvature. Lumbar paraspinous muscles show symmetrical on inspection, on palpation shows some moderate tenderness diffusely throughout the upper, middle and lower distribution of the paraspinous muscles bilaterally and also into the lower thoracic paraspinous musculature, firm and tender, but without specific trigger points, without radiation of pain. The patient has good rotational motion of the lumbar spine, both laterally as well as extension and flexion without significant difficulty. SKIN: Shows warm and dry, good turgor. No edema. Procedure: Procedure: Options were discussed with the patient, we will refer to wound care management for evaluation patient's abdominal wound. Also start on antibiotics Augmentin 500 mg 3 times daily orally. Patient give instructions to keep the area very c lean and dry without any excessive pressure or rubbing frictional forces over the area of the intrathecal pump. We will await wound care evaluation and proceed from there. Medication Injected: Med Injected: None Condition at Discharge: Condition at Discharge: Stable at discharge PERRY TEJEDA MD Jun 01, 2020 09:23
== END | disposition home or self-care (01) ==
LOC: PNCL 08:43
PROVIDERS: ATTEND Anesthesiology
DX: M48.02 Spinal stenosis, cervical region (principal); M96.1 Postlaminectomy syndrome, not elsewhere classified; M54.12 Radiculopathy, cervical region; R25.2 Cramp and spasm; Z79.899 Other long term (current) drug therapy
CPT/HCPCS: 99212; G0463

== ENCOUNTER → 2020-06-02 | Outpatient (CLI) | payer OTHER, MEDICARE | END | disposition home or self-care (01) | LOC: LAB 09:23 | PROVIDERS: ATTEND Anesthesiology | DX: Z01.812 Encounter for preprocedural laboratory examination (principal); Z20.828 Contact with and (suspected) exposure to other viral communicable diseases | CPT/HCPCS: 87426; U0003 ==

== ENCOUNTER 2020-06-03 10:45 | Day surgery (SDC) | payer OTHER, MEDICARE ==
[~2020-06-03 10:45] MED LIST changes: +BACITRACIN 50,000 UNIT in IV NORMAL SALINE 500ML BAG 500 ML IRR ONE; +HYDROmorphone 2 MG/ML VIAL IV PRN; +IV RINGERS,LACTATED 1000ML 1,000 ML IV SCH; +LIDOCAINE 1% PF 2 ML VIAL. ID PRN; +LIDOCAINE 1%/EPI 1:100,000 20 ML VIAL. ONE; +ONDANSETRON PF 4 MG/2 ML VIAL. IV PRN; +PROCHLORPERAZINE 10 MG/2 ML VIAL. IV PRN; +fentaNYL PF VIAL 100 MCG/2 ML VIAL IV PRN
[2020-06-03] MEDS ORDERED: PROPOFOL 10 MG/ML (20ML) VIAL. IV ONE (11:17)
[2020-06-03] MEDS ORDERED: MIDAZOLAM HCL/PF 2 MG/2 ML VIAL. ONE (11:18)
[2020-06-03] MEDS ORDERED: DEXAMETHASONE SOD PHOS 4 MG/ML VIAL ONE (11:18)
[2020-06-03] MEDS ORDERED: ONDANSETRON PF 4 MG/2 ML VIAL. ONE (11:18)
[2020-06-03] MEDS ORDERED: fentaNYL PF VIAL 100 MCG/2 ML VIAL ONE ×2 (11:18→16:10)
[2020-06-03] MEDS ORDERED: LIDOCAINE 2% PF 5 ML VIAL. ONE (11:18)
[2020-06-03] MEDS ORDERED: ROCURONIUM 50 MG/5 ML VIAL. ONE (12:32)
[2020-06-03] MEDS ORDERED: KETAMINE HCL IN NACL, ISO-OSM 50 MG/5 ML SYRINGE ONE (12:50)
[2020-06-03] MEDS ORDERED: PHENYLEPHRINE in 0.9% NACL PF 1 MG/10 ML SYRINGE. IV ONE (14:06)
[2020-06-03] MEDS ORDERED: ePHEDrine PF IN SALINE 50 MG/10 ML SYRINGE. IV ONE (14:06)
[2020-06-03] MEDS ORDERED: GLYCOPYRROLATE 1 MG/5 ML VIAL. ONE (14:09)
[2020-06-03] MEDS ORDERED: NEOSTIGMINE METHYLSULFATE 5 MG/5 ML SYRINGE. ONE (14:09)
[2020-06-03] MEDS ORDERED: SEVOFLURANE > 120 MINUTES. IH ONE (14:40)
[2020-06-03] MEDS ORDERED: BACITRACIN 50,000 UNIT in IV NORMAL SALINE 500ML BAG 500 ML IRR ONE (15:00)
--- NOTE | 2020-06-03 15:57 | DISCH ---
DISCHARGE INSTRUCTIONS Condition on Discharge Condition on Discharge: Stable Activity After Discharge Activity Instructions for Disc: Activity as tolerated Lifting Instructions after Dis: No heavy lifting Driving Instructions after Dis: Do not drive today Diet after Discharge Diet after Discharge: Regular Wound Incision Care Wound/Incision Care: Reinforce dressing PRN Contacting the DRBrandi after DC Call your doctor for: Concerns you may have PERRY TEJEDA MD Jun 03, 2020 15:57
[2020-06-03] MEDS: fentaNYL PF VIAL 100 MCG/2 ML VIAL IV PRN ×2 (16:12→16:18)
[2020-06-03] MEDS ORDERED: HYDROcodone/APAP 7.5/325MG 1 TAB TABLET PO ONE (16:15)
[2020-06-03] MEDS ORDERED: MORPHINE SULFATE 2 MG/ML VIAL. ONE (16:30)
--- NOTE | 2020-06-03 16:30 | PDOC4 ---
OPERATIVE NOTE Date: Date: Nov 05, 2019 Pre-Op Diagnosis: Spasticity Infected intrathecal pump Post-Op Diagnosis: Same Procedure Performed: Removal of infected intrathecal pump and catheter system Surgeon: Herson Anesthesia Type: General endotracheal tube Blood Loss: 100 mL's Specimans Obtained: Intrathecal pump and catheter Findings: See dictation Complications: None Operative Note: Patient was consented for removal intrathecal pump and catheter system with risks discussed including but not limited to bleeding infection possibility of increased pain and spasticity, continued infection and sepsis, complications from anesthetic, and poor results regarding spasticity and pain control. Patient understands wished to proceed. Patient taken to operating suite #8 and general endotracheal anesthesia anesthesia was induced. Patient was rolled to a prone position with all ASA monitors and breath sounds clear to auscultation bilaterally pressure points well-padded with neck shoulders upper and lower extremities in neutral and padded position. Patient's back was sterilely prepped and draped in the usual fashion. Using C-arm fluoroscopic guidance patient intrathecal catheter was identified at the insertion site in the patient's lumbar spine. At this time 1% lidocaine with 1-200,000 epinephrine was used to instill a vertical area ju and sutured tightly at this site. And sutured tightly at this site. Xtaposed the previous incisional scar left paramedian to the spine. Using a 10 blade scalpel incision was made through the anesthetized area of skin and continued down through subcutaneous tissue using both blunt and dull dissection at this point to identify the anchoring device for the intrathecal catheter. Local hemorrhage was controlled using electrocautery as well as irrigation and pressure. The catheter anchoring flange was identified isolated dissected and sutures removed anchoring it into the paraspinous musculature. Time the intrathecal catheter was identified going cephalad into the dura. It was verified on both AP and lateral views with C-arm fluoroscopy. Using a 0 silk suture a pursestring was placed around the existing intrathecal catheter and then the catheter was removed with the tip intact pursestring was then closed tightly at this site. The catheter was then cut at the distal end and removed. Wound was reinspected irrigated with bacitracin irrigation x3 reinspected once again found to have no local hemorrhaging the wound was then closed using 2-0 Vicryl in interrupted fashion for the subcutane ous tissues and a 3-0 Vicryl suture running fashion for skin closure. After soft, Steri-Strips were then applied and island dressing. At this time drapes were removed patient was rolled back onto bed next to the operating table and then transferred back to the operating room bed in a supine position. Breath sounds were again verified clear and bilateral ASA monitors remained intact throughout the transfer process. Patient was reprepped and redraped over the right abdomen in the usual fashion. Also operating surgeon myself and surgical instrument maker re-scrubbed and re-gowned and gloved. Patient's abdomen was then prepped and draped in usual fashion patient intrathecal pump which was very easily palpable with area of skin breakdown in the superior lateral margin was then again identified. Using 1% lidocaine with 1-200,000 epinephrine transverse area was anesthetized in the inferior aspect and medial aspect of the intrathecal pump itself. Incision was made using a 10 blade scalpel through the anesthetized area and dissected down further through the subcutaneous tissues to open the pocket and expressed the intrathecal pump which was identified without difficulty. This time the pump was expressed from the pocket and catheter was removed as well. Pocket was identified and inspected showing no abnormal signs of any infection extra fluid or pus within the pocket itself. Pocket was irrigated x3 with bacitracin irrigation. This time the pocket scar tissue was then resected and removed and the posterior and anterior area santoyo of the pocket itself. Local hemorrhaging controlled using electrocautery as well as pressure and irrigation. At this time the wound was then closed using 2-0 Vicryl in interrupted fashion for the subcutaneous tissues and 3-0 Vicryl running fashion for closure of the skin. Mastisol Steri-Strips, antibiotic impregnated bandage was then applied over the wound site. Patient tolerated the procedure well was transferred to the recovery room in good awake and stable condition. PERRY TEJEDA MD Jun 03, 2020 16:30
[2020-06-03] MEDS: MORPHINE SULFATE 2 MG/ML VIAL. IV PRN ×2 (16:34→16:40)
[2020-06-03 16:35] VITALS: BP 130/79
== END 2020-06-03 17:15 | disposition home or self-care (01) ==
LOC: SURG 10:45
PROVIDERS: ATTEND Anesthesiology
DX: T85.79XA Infection and inflammatory reaction due to other internal prosthetic devices, implants and grafts, initial encounter (principal); F32.9 Major depressive disorder, single episode, unspecified; Y83.8 Other surgical procedures as the cause of abnormal reaction of the patient, or of later complication, without mention of misadventure at the time of the procedure; Y92.89 Other specified places as the place of occurrence of the external cause; Z79.899 Other long term (current) drug therapy; Z83.3 Family history of diabetes mellitus
CPT/HCPCS: 62365; A7015; J1100; J2250; J2270; J2370; J2405; J2704; J2710; J3010; J3490; J7040; 76000; A4461

== ENCOUNTER → 2020-06-15 | Outpatient (CLI) | payer OTHER, MEDICARE ==
[2020-06-03 16:35] VITALS: BP 130/79
[~2020-06-15] MED LIST changes: -BACITRACIN 50,000 UNIT in IV NORMAL SALINE 500ML BAG 500 ML IRR ONE; -HYDROmorphone 2 MG/ML VIAL IV PRN; -IV RINGERS,LACTATED 1000ML 1,000 ML IV SCH; -LIDOCAINE 1% PF 2 ML VIAL. ID PRN; -LIDOCAINE 1%/EPI 1:100,000 20 ML VIAL. ONE; -ONDANSETRON PF 4 MG/2 ML VIAL. IV PRN; -PROCHLORPERAZINE 10 MG/2 ML VIAL. IV PRN; -fentaNYL PF VIAL 100 MCG/2 ML VIAL IV PRN
--- NOTE | 2020-06-15 14:53 | PDOC ---
Progress Note - Pain Clinic Date of Service: DOS: DATE: 06/15/20 TIME: 14:45 Diagnosis: Dx: Spasticity Cervical radiculopathy with cervical spinal stenosis and post cervical matute inectomy syndrome History or Present Illness: HPI: 40-year-old male returns for follow-up status post intrathecal pump erosion and removal on June 03, 2020. Patient had skin breakdown from his intrathecal pump pocket pump was then removed surgically as was the intrathecal catheter and patient returns for follow-up wound check today. Patient reports still significant pain in the abdomen at the site of the skin breakdown with some persistent drainage in the upper outer aspect of the pocket site from the intrathecal pump. Patient reports no fever at home, but persistent drainage in the upper outer aspect of the skin breakdown region. Patient has been seen by wound care and will be seen by wound care again today with the wound redressed. Physical Exam: VS: Blood pressure 114/75 pulse 108 respirations 18 temperature 90.1 F height is 6 feet 3 inches weight is 2 2 0 pounds PE: PHYSICAL EXAMINATION: GENERAL: The patient is awake, alert, oriented, appropriate, very pleasant demeanor,patient accompanied by his spouse. HEENT: Shows normocephalic, atraumatic. NECK: Shows anterior throat supple without palpable lymphadenopathy noted. Swallow reflex symmetrical. CHEST: Shows normal on inspection. Breath sounds are clear bilaterally. HEART: Shows S1, S2 clear. No murmurs auscultated. ABDOMEN: Soft, nondistended, surgical wound is easily identified in the right upper quadrant with persistent area of approximately 1/3 cm circular drainage site upper outer quadrant of the pump pocket area with some serosanguineous drainage persistent on wound change today. Significant tenderness and some indurated tissue surrounding the area of drainage is noted. BACK: Shows spine grossly in the midline. Healing surgical scar is noted in the midline at site of intrathecal pump catheter removal wound is clean and dry no erythema no tenderness no drainage. Normal-appearing cervical lordotic curvature. There is slightly increased thoracic kyphosis, some minor flattening of the lumbar lordotic curvature. Lumbar paraspinous muscles show symmetrical on inspection. The patient has good rotational motion of the lumbar spine, both laterally as well as extension and flexion without significant difficulty. No tenderness over the spinous processes, sacrum or sacroiliac regions. EXTREMITIES: Lower extremities show focal flaccidity with paraplegia. SKIN: Shows warm and dry, good turgor. Procedure: Procedure: 40-year-old male with recent intrathecal pump removal and catheter removal with good healing area in the posterior lumbar distribution however abdominal wound showing persistent drainage in the upper outer quadrant of the pump pocket. Plan: Wound care present at time of examination today with probing of the indurated draining area with expression of more fluid and pus containing exudate which was expressed through the drainage area and then packed and redressed. Wound will be repacked at home as patient's spouse is a registered nurse in approximately 3 days and will follow-up with wound clinic on Saturday, June 20 for reevaluation at that time. Patient will maintain on antibiotics currently taking Augmentin 3 times daily. Medication Injected: Med Injected: None Condition at Discharge: Condition at Discharge: Condition at discharge is stable PERRY TEJEDA MD Jun 15, 2020 14:53
== END | disposition home or self-care (01) ==
LOC: PNCL 13:29
PROVIDERS: ATTEND Anesthesiology
DX: M48.02 Spinal stenosis, cervical region (principal); M54.12 Radiculopathy, cervical region; F41.9 Anxiety disorder, unspecified; F32.9 Major depressive disorder, single episode, unspecified; Z79.899 Other long term (current) drug therapy; Z83.3 Family history of diabetes mellitus
CPT/HCPCS: 87071; 87075; 87077; 87186; 99212; G0463

== ENCOUNTER → 2020-09-02 | Outpatient (CLI) | payer OTHER, MEDICARE | LOC: LAB 11:59 | PROVIDERS: ATTEND Family Medicine | DX: E29.1 Testicular hypofunction (principal) | CPT/HCPCS: 82670; 84402; 84403 ==

== ENCOUNTER → 2020-11-08 | Outpatient (CLI) | payer OTHER, MEDICARE ==
--- NOTE | 2020-11-08 10:12 | PDOC ---
Progress Note - Pain Clinic Date of Service: DOS: DATE: 11/08/20 TIME: 10:08 Diagnosis: Dx: Spasticity Cervical radiculopathy with cervical spinal stenosis and cervical postlami nectomy syndrome History or Present Illness: HPI: 40-year-old male returns for follow-up status post intrathecal baclofen pump removal May 2020 after wound breakdown and infection. Patient has been managed on oral baclofen as well as Zanaflex and hydrocodone in the meantime is ports he doing fairly well with his but is not heavily at the level of decreased activity as he did with the intrathecal system. Secondary to his wound breakdown and infection we had him wait to 6 months before considering replacing the system and has been that time. At this point. Patient reports still spasticity in the low back and legs as well as some in the upper extremities fairly well controlled with the baclofen currently on oral basis. Patient reports still significant pain the base the neck and the right upper extremity and spasticity rated a 7 on scale 10 is worse over the past week 5 on average 3 days least is a 5 today patient ported tingling and burning in the arm as well on the right side and some sharp pain is on and off in intensity generally does not awaken her from sleep at night but can occasionally. Patient reports spasticity is his main complaint again fairly well controlled with the baclofen orally at this time but not to the level as it did intrathecally. Physical Exam: VS: Blood pressure is 97/66 pulse 71 respirations 18 temperature 90.2 F height is 6 feet 3 inches weight is 185 pounds PE: PHYSICAL EXAMINATION: GENERAL: The patient is awake, alert, oriented, appropriate, very pleasant demeanor, patient accompanied by his spouse HEENT: Shows normocephalic, atraumatic. Extraocular movements are intact and symmetrical. Oral cavity: Mucous membranes moist and pink. Dentition is intact. NECK: Shows anterior throat supple without palpable lymphadenopathy noted. Swallow reflex symmetrical. CHEST: Shows normal on inspection. Breath sounds are clear bilaterally. HEART: Shows S1, S2 clear. No murmurs auscultated. ABDOMEN: Soft, nontender, nondistended. No palpable organomegaly is noted. No rebound or guarding demonstrated. Well-healed surgical scar is noted in the right lower quadrant from previous intrathecal pump. BACK: Shows spine grossly in the midline. Normal-appearing cervical lordotic curvature. There is slightly increased thoracic kyphosis, some minor flattening of the lumbar lordotic curvature. Lumbar paraspinous muscles show symmetrical on inspection, on palpation shows some moderate tenderness diffusely throughout the upper, middle and lower distribution of the paraspinous muscles bilaterally without specific trigger points, without radiation of pain. The patient has good rotational motion of the lumbar spine, both laterally as well as extension and flexion without significant difficulty. No tenderness over the spinous processes, sacrum or sacroiliac regions. EXTREMITIES: Lower extremities with paraplegia as previously. Patient's lower extremities are equal in color and appearance. Peripheral pulses are 1+ posterior tibial, no peripheral edema is noted bilaterally. SKIN: Shows warm and dry, good turgor. No edema. No sores, rashes or bruising throughout. Procedure: Procedure: Options were discussed with the patient. Patient chart reviews her current medication regimen updated current review of systems updated today as well. We will make arrangements for replacement of the intrathecal system with the pump plan to be on the left abdominal wall and a 20 cc pump as the 40 cc previously had eroded through the skin on the right side due to patient's size and high activity level. Again it has been over 6 months now since previous system was removed and we will make arrangements for replacement of the baclofen intrathecal system pending. Medication Injected: Med Injected: None Condition at Discharge: Condition at Discharge: Condition at discharge stable. PERRY TEJEDA MD Nov 08, 2020 10:11
== END | disposition home or self-care (01) ==
LOC: PNCL 09:19
PROVIDERS: ATTEND Anesthesiology
DX: M48.02 Spinal stenosis, cervical region (principal); M54.12 Radiculopathy, cervical region; M96.1 Postlaminectomy syndrome, not elsewhere classified; R25.2 Cramp and spasm; F32.9 Major depressive disorder, single episode, unspecified; Z90.49 Acquired absence of other specified parts of digestive tract; Z98.890 Other specified postprocedural states; Z79.899 Other long term (current) drug therapy
CPT/HCPCS: 99212; G0463

== ENCOUNTER → 2020-11-29 | Outpatient (CLI) | payer OTHER, MEDICARE | LOC: LAB 09:38 | PROVIDERS: ATTEND Nurse Practitioner Family | DX: Z11.4 Encounter for screening for human immunodeficiency virus [HIV] (principal); Z11.3 Encounter for screening for infections with a predominantly sexual mode of transmission | CPT/HCPCS: 36415; 86592; 86703; 86704; 86803; 87340 ==

== ENCOUNTER → 2020-12-06 | Outpatient (CLI) | payer OTHER, MEDICARE ==
[~2020-12-06] MED LIST changes: +BACL10TA PO; +ESCITALOPRAM OX10 MG PO; +TIZA4TAB8 PO
--- NOTE | 2020-12-08 14:06 | PDOC ---
Progress Note - Pain Clinic Date of Service: DOS: DATE: 12/08/20 TIME: 14:01 Diagnosis: Dx: Spasticity Cervical radiculopathy with cervical spinal stenosis and cervical postlami nectomy syndrome History or Present Illness: HPI: 40-year-old male status post intrathecal baclofen pump removal May 2020 after wound breakdown and infection. Patient has been managed on oral baclofen as well as Zanaflex and hydrocodone in the meantime he reports he is doing fairly well with this but is not significantly decrease the spasticity at the level he had with his intrathecal system. Patient reports that he has been doing well otherwise. Secondary to patient's wound breakdown and infection we did have him wait 6 months before considering replacing the system and that has been elapsed at this point. Patient reports still spasticity in the low back and leg as well as some in the upper extremities fairly well controlled the baclofen currently on oral basis but not to the level it was with the intrathecal system. Patient reports pain worse in the base of the neck and right upper extremity and spasticity rated a 7 on a scale of 10 at its worst over the past week 5 on average and 3 at its least and is a 5 today. Patient reports no new motor or sensory deficits no new changes. Physical Exam: VS: Blood pressure 100/67 respirations 16 temperatures 98.2 F pulse of 77 height is 6 foot 3 inches weight is 185 pounds. PE: PHYSICAL EXAMINATION: GENERAL: The patient is awake, alert, oriented, appropriate, very pleasant demeanor HEENT: Shows normocephalic, atraumatic. Extraocular movements are intact and symmetrical. Oral cavity: Mucous membranes moist and pink. Dentition is intact. NECK: Shows anterior throat supple without palpable lymphadenopathy noted. Swallow reflex symmetrical. CHEST: Shows normal on inspection. Breath sounds are clear bilaterally. HEART: Shows S1, S2 clear. No murmurs auscultated. ABDOMEN: Soft, nontender, nondistended. No palpable organomegaly is noted. No rebound or guarding demonstrated. Well-healed surgical scarring in the right lower quadrant from previous intrathecal pump placements now well-healed and without any signs of infection no erythema tenderness or exudate. BACK: Shows spine grossly in the midline. Normal-appearing cervical lordotic curvature. There is slightly increased thoracic kyphosis, some minor flattening of the lumbar lordotic curvature. Lumbar paraspinous muscles show symmetrical on inspection, on palpation shows some moderate tenderness diffusely throughout the upper, middle and lower distribution of the paraspinous muscles without specific trigger points, without radiation of pain. The patient has good rotational motion of the lumbar spine, both laterally as well as extension and flexion without significant difficulty. EXTREMITIES: Lower extremities with paraplegia as on previous exam. Patient lower extremities are equal in color and appearance peripheral pulses are 1+ posterior tibial with no peripheral edema noted bilaterally. SKIN: Shows warm and dry, good turgor. No edema. No sores, rashes or bruising throughout. Procedure: Procedure: Options were discussed with the patient. Patient's chart was reviewed as was his current medication regimen updated and current review of systems updated. We will plan on intrathecal pump baclofen system replacement with intrathecal catheter as planned. Surgery currently scheduled for December 09, 2020. Medication Injected: Med Injected: None Condition at Discharge: Condition at Discharge: Stable PERRY TEJEDA MD Dec 08, 2020 14:06
== END | disposition home or self-care (01) ==
LOC: LAB 09:28
PROVIDERS: ATTEND Anesthesiology
DX: Z20.822 Contact with and (suspected) exposure to COVID-19 (principal); F32.9 Major depressive disorder, single episode, unspecified; Z90.49 Acquired absence of other specified parts of digestive tract; Z98.890 Other specified postprocedural states
CPT/HCPCS: U0003

== ENCOUNTER 2020-12-09 10:43 | Day surgery (SDC) | payer OTHER, MEDICARE ==
[~2020-12-09] VITALS: Ht 190.5 cm; Wt 83.9 kg
[~2020-12-09 10:43] MED LIST changes: +BACITRACIN 50,000 UNIT in IV NORMAL SALINE 500ML BAG 500 ML IRR ONE; +BACLOFEN IT ONE; +HYDROmorphone 2 MG/ML VIAL IVP PRN; +IV RINGERS,LACTATED 1000ML 1,000 ML IV SCH; +MORPHINE SULFATE 2 MG/ML VIAL. IVP PRN; +PROCHLORPERAZINE 10 MG/2 ML VIAL. IVP PRN; +[UNRECOGNIZED DRUG - OTHER] IT ONE; +ceFAZolin SODIUM IV Push 1 GM VIAL. IVP PRN; +fentaNYL PF VIAL 100 MCG/2 ML VIAL IVP PRN
[2020-12-09] MEDS ORDERED: MIDAZOLAM HCL/PF 2 MG/2 ML VIAL. ONE (11:49)
[2020-12-09] MEDS ORDERED: LIDOCAINE 1%/EPI 1:100,000 20 ML VIAL. ONE (12:16)
[2020-12-09] MEDS ORDERED: fentaNYL PF VIAL 100 MCG/2 ML VIAL ONE ×3 (12:46→15:49)
[2020-12-09] MEDS ORDERED: PHENYLEPHRINE in 0.9% NACL PF 1 MG/10 ML SYRINGE. IV ONE ×2 (12:58→12:59)
[2020-12-09] MEDS ORDERED: ONDANSETRON PF 4 MG/2 ML VIAL. ONE (12:59)
[2020-12-09] MEDS ORDERED: DEXAMETHASONE SOD PHOS 4 MG/ML VIAL ONE (12:59)
[2020-12-09] MEDS ORDERED: LIDOCAINE 2% PF 5 ML VIAL. ONE (12:59)
[2020-12-09] MEDS ORDERED: PROPOFOL 10 MG/ML (20ML) VIAL. IV ONE (12:59)
[2020-12-09] MEDS ORDERED: ePHEDrine PF IN SALINE 50 MG/10 ML SYRINGE. IV ONE (13:49)
--- NOTE | 2020-12-09 15:19 | DISCH ---
DISCHARGE INSTRUCTIONS Condition on Discharge Condition on Discharge: Stable Activity After Discharge Activity Instructions for Disc: Activity as tolerated Lifting Instructions after Dis: No heavy lifting Driving Instructions after Dis: Do not drive today Diet after Discharge Diet after Discharge: Regular Wound Incision Care Wound/Incision Care: Reinforce dressing PRN Contacting the DRBrandi after DC Call your doctor for: Concerns you may have PERRY TEJEDA MD Dec 09, 2020 15:19
--- NOTE | 2020-12-09 15:36 | PDOC4 ---
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
--- NOTE | 2020-12-09 15:37 | PDOC4 ---
PROCEDURE Procedure Patient was consented for intrathecal pump placement and intrathecal catheter placement. Risk were discussed including but not limited to bleeding infection possibility of epidural hematoma and subsequent neurological compromise dural puncture headache spinal cord and/or nerve damage, postoperative infection as well as poor results regarding pain control. Patient understands wishes to proceed. Patient was taken the operating suite and general anesthesia was induced. Patient was positioned on the operating bed with all pressure points padded in the right lateral decubitus position. Sterile prep and drape was carried out in the usual fashion. Using C-arm fluoroscopic guidance patient's lumbar spine was visualized in AP and lateral views and using a 18-gauge spinal needle, spinal tap was performed with out difficulty at the L 3-4 level, and with ease of cerebrospinal fluid flow. Intrathecal catheter was then placed through the spinal needle after stylet removal, and under direct visualization from fluoroscopy was advanced without difficulty or resistance to rest with the tip of the intrathecal catheter at the T1-2 intervertebral level and the spinal fluid. This was verified with both AP and lateral views with fluoroscopy. At this time the needle insertion was then extended using 10 blade scalpel above and below the spinal needle approximately 1 cm direction superiorly and inferiorly. Local hemorrhage was controlled using electrocautery as well as pressure and irrigation. The spinal catheter was then anchored using anchoring device and 0 silk suture to the paraspinous fascia. The stylette within the intrathecal catheter was maintained during this. To prevent any CSF flow. At this time patient's abdomen was then inspected and midway between the rib margin and iliac crest anteriorly, proximate 10 cm incision was made using 10 blade scalpel in a transverse fashion. Incision was extended into the subcutaneous tissue and fascial layer local hemorrhage was controlled using electrocautery as well as pressure and irrigation. Pocket was created using both blunt and dull dissection medially and slightly inferiorly towards the midline above the muscular fascia of the external oblique and the subcutaneous fascia of the skin and subcutaneous tissues. At this time the pump sizing template was used to verify size of the pocket for the intrathecal pump. This was noted to be adequate and without increased stress or pressure on the overlying skin structures. At this time tunneling device was used from the lumbar incision towards the pocket now on the abdominal wall to create tunnel subcutaneously to the pocket itself without difficulty. Tunneling device stylette was then removed and the intrathecal catheter stylette was then removed and catheter then passed through the tunneling device to now lie in the pocket on the abdominal wall. The catheter tip adapter for the pump was then placed into the catheter and secured. Catheter was then attached to the intrathecal pump which had been prefilled and preprogrammed with [employer] manufacturer's representative present today. Pump was then anchored using the superior anchoring flanges on the pump with 0 silk to the inferior aspect of the pocket overlying the muscular fascia. The extra intrathecal catheter length was then coiled behind the pump and laid to rest without stress or tension on the catheter itself. At this time wounds were closed first the lumbar incision for catheter placement using 2-0 Vicryl for fascia and deep layers and in interrupted fashion and 3-0 Vicryl in a running fashion for skin closure. Intrathecal pump pocket on the abdomen was closed w ith 2-0 Vicryl for fascial layer in interrupted fashion and 3-0 Vicryl in running fashion for the skin as well. Steri-Strips were placed as was Tegaderm and island dressings on each incision site. Patient tolerated the procedure well had no immediate complications was transferred to the recovery room in good stable and awake condition. PERRY TEJEDA MD Dec 09, 2020 15:37
[2020-12-09] MEDS: fentaNYL PF VIAL 100 MCG/2 ML VIAL IVP PRN ×2 (15:53→16:02)
[2020-12-09 16:15] VITALS: BP 127/77
== END 2020-12-09 16:40 | disposition home or self-care (01) ==
LOC: SURG 10:43
PROVIDERS: ATTEND Anesthesiology
DX: G82.20 Paraplegia, unspecified (principal); R25.2 Cramp and spasm; F32.9 Major depressive disorder, single episode, unspecified; Z90.49 Acquired absence of other specified parts of digestive tract; Z98.890 Other specified postprocedural states; Z79.899 Other long term (current) drug therapy; Z72.89 Other problems related to lifestyle; Z88.8 Allergy status to other drugs, medicaments and biological substances
CPT/HCPCS: 62361; A4220; A4364; A6219; C1755; C1772; J0475; J0690; J1100; J2250; J2370; J2405; J2704; J3010; J3490; J7040; 76000; A4452

== ENCOUNTER → 2020-12-21 | Outpatient (CLI) | payer OTHER, MEDICARE ==
[2020-12-09 16:15] VITALS: BP 127/77
[~2020-12-21] MED LIST changes: -BACITRACIN 50,000 UNIT in IV NORMAL SALINE 500ML BAG 500 ML IRR ONE; -BACLOFEN IT ONE; +DICL75TA PO; -HYDROmorphone 2 MG/ML VIAL IVP PRN; -IV RINGERS,LACTATED 1000ML 1,000 ML IV SCH; -MORPHINE SULFATE 2 MG/ML VIAL. IVP PRN; -PROCHLORPERAZINE 10 MG/2 ML VIAL. IVP PRN; -[UNRECOGNIZED DRUG - OTHER] IT ONE; -ceFAZolin SODIUM IV Push 1 GM VIAL. IVP PRN; -fentaNYL PF VIAL 100 MCG/2 ML VIAL IVP PRN
--- NOTE | 2020-12-21 12:40 | PDOC ---
Progress Note - Pain Clinic Date of Service: DOS: DATE: 12/21/20 TIME: 12:35 Diagnosis: Dx: Cervical radiculopathy with cervical spinal stenosis and cervical postlaminectomy syndrome Spasticity with intrathecal baclofen pump therapy History or Present Illness: HPI: 40-year-old male returns to follow-up status post thecal pump and catheter replacement December 09, 2020. Patient reports he did have a positional headache after the procedure however this is resolved now his main complaint is pain in the low back at the incision site but the abdominal site on the left lower quadrant is not significantly painful. Patient has been increase his activity with greater ease and comfort and reports he is sleeping better at night. Patient reports the spasticity is controlled well in the lower extremities as well as the upper extremities and he is pleased with the current settings with his flex program on his intrathecal pump. Patient reports no side effects and no new complaints. Physical Exam: VS: Blood pressure is 123/61 pulse 77 respirations 16 temperature 97.7 F height and weight were deferred per patient's request as he is in a wheelchair. PE: PHYSICAL EXAMINATION: GENERAL: The patient is awake, alert, oriented, appropriate, very pleasant demeanor HEENT: Shows normocephalic, atraumatic. Extraocular movements are intact and symmetrical. Oral cavity: Mucous membranes moist and pink. Dentition is intact. NECK: Shows anterior throat supple without palpable lymphadenopathy noted. Swallow reflex symmetrical. CHEST: Shows normal on inspection. Breath sounds are clear bilaterally, no rales or rhonchi. HEART: Shows S1, S2 clear. No murmurs auscultated. ABDOMEN: Soft, nontender, nondistended. No palpable organomegaly is noted. Eas camden palpable intrathecal pump is noted with well-healed surgical scar with Steri-Strips still in place no erythema no tenderness no drainage from the site and mobile pump without tenderness on mobility. BACK: Shows spine grossly in the midline. Normal-appearing cervical lordotic curvature. There is slightly increased thoracic kyphosis, some minor flattening of the lumbar lordotic curvature. Lumbar incision left of midline shows Steri- Strips intact is clean and dry no erythema no drainage no significant tenderness with palpation around the incision site itself. Lumbar paraspinous muscles show symmetrical on inspection, on palpation shows some moderate tenderness diffusely throughout the upper, middle and lower distribution of the paraspinous muscles without specific trigger points, without radiation of pain. The patient has good rotational motion of the lumbar spine, both laterally as well as extension and flexion without significant difficulty. No tenderness over the spinous processes, sacrum or sacroiliac regions. EXTREMITIES: Lower extremities show dorsal paraplegia bilaterally are symmetrical and equal in color and appearance. Upper extremities show deep tendon reflexes 2+ in the biceps and triceps tendons administrative office assistant strength is approximately 3-4 on a scale of 5 with some partial paraplegia in both the hands as well. SKIN: Shows warm and dry, good turgor. No edema. No sores, rashes or bruising throughout. Procedure: Procedure: Intrathecal pump interrogation without reprogramming as documented. Medication Injected: Med Injected: None Condition at Discharge: Condition at Discharge: Condition at discharge is stable. Patient will return to the clinic prior to which is the refill date for his intrathecal pump baclofen. PERRY TEJEDA MD Dec 21, 2020 12:40
== END | disposition home or self-care (01) ==
LOC: PNCL 09:27
PROVIDERS: ATTEND Anesthesiology
DX: M48.02 Spinal stenosis, cervical region (principal); M54.12 Radiculopathy, cervical region; M96.1 Postlaminectomy syndrome, not elsewhere classified; R25.2 Cramp and spasm; F32.9 Major depressive disorder, single episode, unspecified; Z90.49 Acquired absence of other specified parts of digestive tract; Z98.890 Other specified postprocedural states; Z79.899 Other long term (current) drug therapy
CPT/HCPCS: 95991

== ENCOUNTER → 2021-01-03 | Outpatient (CLI) | payer OTHER, MEDICARE ==
[2020-12-09 16:15] VITALS: BP 127/77
--- NOTE | 2021-01-03 10:31 | PDOC ---
Progress Note - Pain Clinic Date of Service: DOS: DATE: 01/03/21 TIME: 10:27 Diagnosis: Dx: Cervical radiculopathy with cervical spinal stenosis and cervical postlaminectomy syndrome Spasticity with intrathecal baclofen pump therapy History or Present Illness: HPI: 40-year-old male returns follow-up status post baclofen pump replacement December 09, 2020. Patient reports he is doing fairly well with this but is healing up very well and the spasticity is improved but to the extent where he is having some flaccidity of the lower extremities with transfers and weightbearing mostly in the morning and during the afternoon. Patient reports he feels that the baclofen level is a bit high at this point has good reference for this as he has had this intrathecal delivery system for many years with recent replacement. Patient reports that his increased flaccidity and weakness in the legs and some pain in the base the neck and right shoulder rated as a 7 on scale 10 is worse the past week for an average to its least is a 4 today. Patient reports no new motor or sensory deficit follow-up complaints reports his wounds are healing very well still some soreness in the lumbar area but getting better with time. Patient reports no new changes or other complaints. Physical Exam: VS: Blood pressure is 114/63 pulse 69 respirations are 16 temperature 98.1 F height and weight were deferred as patient is in wheelchair. PE: PHYSICAL EXAMINATION: GENERAL: The patient is awake, alert, oriented, appropriate, very pleasant demeanor HEENT: Shows normocephalic, atraumatic. Extraocular movements are intact and symmetrical. NECK: Shows anterior throat supple without palpable lymphadenopathy noted. Swallow reflex symmetrical. CHEST: Shows normal on inspection. Breath sounds are clear bilaterally, shallow but clear bilaterally. HEART: Shows S1, S2 clear. No murmurs auscultated. ABDOMEN: Soft, nontender, nondistended. No palpable organomegaly is noted. Easily palpable intrathecal pump on the left lower quadrant is noted with well- healing surgical scar without erythema without tenderness drainage. Pump is mobile but nontender with mobile palpation. BACK: Shows spine grossly in the midline. Normal-appearing cervical lordotic curvature. There is slightly increased thoracic kyphosis, some minor flattening of the lumbar lordotic curvature. Surgical scar is noted well-healing to the left of midline nontender no erythema no drainage. Lumbar paraspinous muscles show symmetrical on inspection, on palpation shows some moderate tenderness diffusely throughout the upper, middle and lower distribution of the paraspinous muscles. EXTREMITIES: Lower extremities show partial paraplegia with decreased strength proportionally bilaterally. SKIN: Shows warm and dry, good turgor. No edema. No sores, rashes or bruising throughout. Procedure: Procedure: Options discussed with the patient and patient's spouse who accompanied him at his visit today. We will decrease patient's intrathecal baclofen delivery by 10% maintaining flex programming from 4 AM to noon as well as 7 PM till midnight proportionally with a 10% decrease overall. Patient's refill date will be changed now to April 21, 2021. Patient will follow up sooner if necessary and as symptoms dictate. Medication Injected: Med Injected: None Condition at Discharge: Condition at Discharge: Condition at discharge stable, patient tolerated the reprogramming well and had no complications. PERRY TEJEDA MD Jan 03, 2021 10:31
== END | disposition home or self-care (01) ==
LOC: PNCL 10:00
PROVIDERS: ATTEND Anesthesiology
DX: M48.02 Spinal stenosis, cervical region (principal); M54.12 Radiculopathy, cervical region; M96.1 Postlaminectomy syndrome, not elsewhere classified; R25.2 Cramp and spasm; F32.9 Major depressive disorder, single episode, unspecified; Z90.49 Acquired absence of other specified parts of digestive tract; Z98.890 Other specified postprocedural states; Z72.89 Other problems related to lifestyle; Z79.899 Other long term (current) drug therapy
CPT/HCPCS: 99212; G0463

== ENCOUNTER → 2021-04-03 | Outpatient (CLI) | payer OTHER, MEDICARE | LOC: LAB 08:49 | PROVIDERS: ATTEND Urology | DX: E29.1 Testicular hypofunction (principal) | CPT/HCPCS: 82670; 84402; 84403; 85014 ==

== ENCOUNTER → 2021-04-07 | Outpatient (CLI) | payer OTHER, MEDICARE ==
[~2021-04-07] MED LIST changes: +BACLOFEN IT ONE; +[UNRECOGNIZED DRUG - OTHER] IT ONE
--- NOTE | 2021-04-07 13:12 | PDOC ---
Progress Note - Pain Clinic Date of Service: DOS: DATE: 04/07/21 TIME: 13:06 Diagnosis: Dx: Cervical radiculopathy with cervical spinal stenosis cervical postlaminectomy syndrome Spasticity with intrathecal baclofen pump History or Present Illness: HPI: 40-year-old male returns for follow-up status post intrathecal pump therapy with baclofen. We had replaced his pump March 11, 2021 and is back for refill today and reprogramming. Patient reports his flex program is doing well as we have reprogrammed that once prior and reports that he is doing a good job of maintaining his spasticity is quite pleased with his progress thus far. Patient reports no side effects with the medication no increased flaccidity or weakness. Patient remains painful in the base the neck and right shoulder with some pain rating to the right arm as well from cervical radiculopathy but reports is fairly tolerable at this time. Patient reports that sharp tingling and burning in the right arm on and off in intensity patient rates as 8 on scale 10 is worst over the past week for an average to its least is a 2 today. Patient maintains a very active lifestyle and is quite active despite his paraplegia. Patient reports no new motor or sensory deficits and no side effects from the medication. Physical Exam: VS: Blood pressure is 102/68 pulse 70 respirations 16 temperature is 97.2 F weight is 1 7 8 pounds PE: PHYSICAL EXAMINATION: GENERAL: The patient is awake, alert, oriented, appropriate, very pleasant in demeanor, patient accompanied by his spouse. HEENT: Shows normocephalic, atraumatic. Extraocular movements are intact and symmetrical. Oral cavity: Mucous membranes moist and pink. Dentition is intact. NECK: Shows anterior throat supple without palpable lymphadenopathy noted. Swallow reflex symmetrical. CHEST: Shows normal on inspection. Breath sounds are clear bilaterally. HEART: Shows S1, S2 clear. No murmurs auscultated. ABDOMEN: Soft, nontender, nondistended. No palpable organomegaly is noted. No rebound or guarding demonstrated. Easily palpable intrathecal pump is noted in the left lower quadrant with well-healed surgical scar. BACK: Shows spine grossly in the midline. Normal-appearing cervical lordotic curvature. Cervical paraspinous muscles show symmetrical with inspection on palpation some moderate tenderness inferiorly in the right greater than left inferior cervical paraspinous musculature and also the superior medial and lateral trapezius on the right. Patient with full rotation motion cervical spine with lateral as well as full extension full forward flexion without significant difficulty. There is slightly increased thoracic kyphosis, some minor flattening of the lumbar lordotic curvature. Lumbar paraspinous muscles show symmetrical on inspection. EXTREMITIES: Upper extremities show deep tendon reflexes 2+ in the steps and triceps tendons. Motor exam is 5 on a scale of 5 with right strength, biceps and triceps flexion and 5/5 on the left. Peripheral pulses are 2+ radial. No peripheral edema is noted bilaterally. Upper extremities are warm and dry to touch, equal in color and appearance. SKIN: Shows warm and dry, good turgor. No edema. No sores, rashes or bruising throughout. Procedure: Procedure: Options were discussed with the patient. Patient chart reviews her current medication regimen updated, current review of systems updated today as well. We will proceed with intrathecal pump refill and reprogramming as well as flex reprogramming today. Discussed including but not limited to bleeding infection possibility of extravasation of medication and resuscitative measures necessary as well as poor results regarding pain and spasticity control. Patient understands and wishes to proceed. Medication Injected: Med Injected: Under sterile prep and drape patient's abdomen was prepped over the intrathecal pump, using a 22-gauge noncutting [employer] brand needle the pump was entered without difficulty. Aspiration showed removal of 3 cc of old medication which was discarded. 20 cc of new medication containing baclofen 1000 mcg/cc was then replaced. Needle was withdrawn and sterile bandage was applied;pump was then reprogrammed for volume as well as alarm settings and flex settings reprogrammed as well. Patient tolerated procedure well had no complications. Condition at Discharge: Condition at Discharge: Condition at discharge stable, patient already procedure well and had no complications. PERRY TEJEDA MD Apr 07, 2021 13:12
--- NOTE | 2021-04-07 13:13 | PDOC4 ---
Procedure Note: Procedure Note: Patient was consented for intrathecal pump refill and reprogramming. Risk were discussed including but not limited to bleeding infection possibility of extravasation of medication and possible resuscitative measures as well as poor results regarding spasticity and pain control. Under sterile prep and drape patient's abdomen was prepped over the intrathecal pump, using a 22-gauge noncutting [employer] brand needle the pump was entered without difficulty. Aspiration showed removal of 3 cc of old medication which was discarded. 20 cc of new medication containing baclofen 1000 mcg/cc was then replaced. Needle was withdrawn and sterile bandage was applied;pump was then reprogrammed for volume as well as alarm settings and flex settings reprogrammed as well. Patient tolerated procedure well had no complications. PERRY TEJEDA MD Apr 07, 2021 13:13
== END | disposition home or self-care (01) ==
LOC: PNCL 11:40
PROVIDERS: ATTEND Anesthesiology
DX: M54.12 Radiculopathy, cervical region (principal); M48.02 Spinal stenosis, cervical region; M96.1 Postlaminectomy syndrome, not elsewhere classified; F32.9 Major depressive disorder, single episode, unspecified; Z90.49 Acquired absence of other specified parts of digestive tract; Z98.890 Other specified postprocedural states; Z79.899 Other long term (current) drug therapy; Z72.89 Other problems related to lifestyle
CPT/HCPCS: 62370

== ENCOUNTER → 2021-07-26 | Outpatient (CLI) | payer OTHER, MEDICARE ==
[~2021-07-26] MED LIST changes: -BACLOFEN IT ONE; -[UNRECOGNIZED DRUG - OTHER] IT ONE
--- NOTE | 2021-07-26 14:27 | NUR ---
Patient called requesting a refill of his hydrocodone. Verified name, , pharmacy, no new medications. patient states his level of pain is a 7. denies constipation,ktdeepak verified Chart given to Dr Bains.
--- NOTE | 2021-07-26 17:47 | PDOC ---
Progress Note - Pain Clinic Date of Service: DOS: DATE: 07/26/21 TIME: 17:45 Diagnosis: Dx: Cervical radiculopathy with cervical spinal stenosis cervical postlaminectomy syndrome Spasticity with intrathecal pump History or Present Illness: HPI: Telemedicine visit today with patient's identity verified with date of and full name, total time spent minutes. 41-year-old male via telemedicine visit today with pain base the neck and bilateral upper extremities and shoulders as well as spasticity patient with baclofen pump as well as taking hydrocodone rather sparingly but with good effect and no side effects. Patient reports no new motor or sensory deficit still some spasticity and is due for intrathecal pump refill August 23 of this year. Patient reports doing well with the medication has had appropriate K tracks reporting as well as appropriate urinalysis today as well. We will refill patient's hydrocodone with instructions side effects aware discussed with the patient. Patient will follow up in the clinic on August 23 as scheduled. Physical Exam: PE: PERRY TEJEDA MD Jul 26, 2021 17:47
--- NOTE | 2021-08-01 12:42 | FMN ---
PT PROBLEMS Addendum for visit of 07/26/2021. Total time spent via telemedicine visit was 12 minutes PERRY TEJEDA MD Aug 01, 2021 12:42
== END | disposition home or self-care (01) ==
LOC: PNCL 14:19
PROVIDERS: ATTEND Anesthesiology
DX: M48.02 Spinal stenosis, cervical region (principal); M96.1 Postlaminectomy syndrome, not elsewhere classified; R25.2 Cramp and spasm; F32.9 Major depressive disorder, single episode, unspecified; Z79.899 Other long term (current) drug therapy; Z90.49 Acquired absence of other specified parts of digestive tract; Z98.890 Other specified postprocedural states; Z72.89 Other problems related to lifestyle
CPT/HCPCS: 99212; G0463

== ENCOUNTER → 2021-08-23 | Outpatient (CLI) | payer OTHER, MEDICARE ==
[~2021-08-23] MED LIST changes: +BACLOFEN IT ONE; +[UNRECOGNIZED DRUG - OTHER] IT ONE
--- NOTE | 2021-08-23 12:55 | PDOC ---
Progress Note - Pain Clinic Date of Service: DOS: DATE: 08/23/21 TIME: 12:50 Diagnosis: Dx: Cervical radiculopathy with cervical spinal stenosis and cervical postlaminectomy syndrome Spasticity with intrathecal pumpbaclofen History or Present Illness: HPI: 41-year-old male returns for follow-up status post intrathecal pump therapy for spasticity with a very good results with baclofen with flex programming with his intrathecal pump. Patient reports doing very well reports about a 70+ percent decrease in spasticity and pain also some pain in the base the neck and right shoulder but fairly well managed at this time patient does take hydrocodone but only very infrequently and the pain the neck and shoulder is significant. Patient reports no new motor or sensory deficits no new bowel or bladder incontinence patient is partial paraplegic and is in his wheelchair today as well. Patient rates pain a 7 on scale 10 is worse over the past week for an average 3 its least it is a 4 today patient which is sharp and tingling burning patient neck and shoulder off and on intensity but spasticity is very well controlled and reports he is at a very good stable regimen with the baclofen. Physical Exam: VS: Blood pressure 113/63 pulse 81 respirations are 16 temperature is 98.8 F height and weight deferred as patient is in wheelchair. PE: PHYSICAL EXAMINATION: GENERAL: The patient is awake, alert, oriented, appropriate, very pleasant in demeanor HEENT: Shows normocephalic, atraumatic. Extraocular movements are intact and symmetrical. Oral cavity: Mucous membranes moist and pink. Dentition is intact. NECK: Shows anterior throat supple without palpable lymphadenopathy noted. Swallow reflex symmetrical. CHEST: Shows normal on inspection. Breath sounds are clear bilaterally, distant but no rales or rhonchi. HEART: Shows S1, S2 clear. No murmurs auscultated. ABDOMEN: Soft, nontender, nondistended. No palpable organomegaly is noted. Easily palpable intrathecal pump is noted in the left lower quadrant with well- healed surgical scarring. BACK: Shows spine grossly in the midline. Normal-appearing cervical lordotic curvature. Cervical paraspinous muscles show symmetrical inspection, on palpation some moderate tenderness diffusely in the inferior aspect of the cervical paraspinous muscles are more on the right than the left but without specific trigger points or radiation. Patient shows full rotation motion cervical spine with lateral as well as extension flexion without difficulty. There is slightly increased thoracic kyphosis, some minor flattening of the lumbar lordotic curvature. EXTREMITIES: Upper extremities show deep tendon reflexes 2+ in the biceps and tricep tendons. Motor exam is 5 on a scale of 5 with right phlebotomy support tech, biceps and triceps flexion and 5/5 on the left. Peripheral pulses are 2+ radial. No peripheral edema is noted bilaterally. Upper extremities are warm and dry to touch, equal in color and appearance. SKIN: Shows warm and dry, good turgor. No edema. No sores, rashes or bruising throughout. Procedure: Procedure: Options were discussed with the patient. Patient chart reviews his current medication regimen updated current review of systems updated today as well. We will refill and reprogram intrathecal pump with flex programming as well with baclofen 1000 mcg/cc. Risk discussed including but not limited to bleeding infection possibility of extravasation of medication as well as poor results regarding pain control. Patient understands wished to proceed. Patient will return for pump refill prior to January 12, 2022. We will follow up as necessary regarding cervical radiculopathy as well. Medication Injected: Med Injected: Under sterile prep and drape patient's abdomen was prepped over the intrathecal pump, using a 22-gauge noncutting [employer] brand needle the pump was entered without difficulty. Aspiration showed removal of 3 cc of old medication which was discarded. 20 cc of new medication containing baclofen was then replaced. Needle was withdrawn and sterile bandage was applied;pump was then reprogrammed for volume as well as alarm settings and flex programming, reprogrammed as well. Patient tolerated procedure well had no complications. Condition at Discharge: Condition at Discharge: Condition at discharge stable, patient Kelsi the procedure well and had no complications. PERRY TEJEDA MD Aug 23, 2021 12:55
--- NOTE | 2021-08-23 12:56 | PDOC4 ---
Procedure Note: ICD 10 Code: ICD 10 Code: G8 0.1 M54.12 M4 8.02 722.81 Procedure Note: Patient was consented for intrathecal pump refill and reprogramming. Risk were discussed including but not limited to bleeding infection possibility extravasation of material as well as poor results regarding pain control. Patient understands and wishes to proceed. Under sterile prep and drape patient's abdomen was prepped over the intrathecal pump, using a 22-gauge noncutting [employer] brand needle the pump was entered without difficulty. Aspiration showed removal of 3 cc of old medication which was discarded. 20 cc of new medication containing baclofen was then replaced. Needle was withdrawn and sterile bandage was applied;pump was then reprogrammed for volume as well as alarm settings and flex programming, reprogrammed as well. Patient tolerated procedure well had no complications. PERRY TEJEDA MD Aug 23, 2021 12:56
== END | disposition home or self-care (01) ==
LOC: PNCL 10:56
PROVIDERS: ATTEND Anesthesiology
DX: M54.12 Radiculopathy, cervical region (principal); M48.02 Spinal stenosis, cervical region; M96.1 Postlaminectomy syndrome, not elsewhere classified; R25.2 Cramp and spasm; G80.1 Spastic diplegic cerebral palsy; F32.9 Major depressive disorder, single episode, unspecified; Z79.899 Other long term (current) drug therapy; Z90.49 Acquired absence of other specified parts of digestive tract; Z98.890 Other specified postprocedural states; Z72.89 Other problems related to lifestyle
CPT/HCPCS: 62370; J0475

== ENCOUNTER → 2021-09-29 | Outpatient (CLI) | payer OTHER, MEDICARE ==
[~2021-09-29] MED LIST changes: -BACLOFEN IT ONE; -[UNRECOGNIZED DRUG - OTHER] IT ONE
--- NOTE | 2021-09-29 09:00 | NUR ---
Patient called requesting a refill on meds,reviewed medications verified patient ,verified allergies,and next appointment. patient denies constipation, new medical problems . States his pain level is around a 5-6. Call transferred to Dr Bains. [employer]tracts is correct.
--- NOTE | 2021-09-29 09:19 | PDOC ---
Progress Note - Pain Clinic Date of Service: DOS: DATE: 09/29/21 TIME: 09:16 Diagnosis: Dx: Cervical radiculopathy with cervical spinal stenosis and cervical postlaminectomy syndrome Spasticity with intrathecal pump therapybaclofen History or Present Illness: HPI: 41-year-old male via telemedicine visit today with identity verified with full date of as well as full name, total time spent 12 minutes Patient via telemedicine visit requesting medication refill of hydrocodone 7.5 mg patient doing very well reports that spasticity is well controlled with the pump but is having significant pain in the base the neck and shoulders and upper extremities patient has had cervical epidural steroid injections in the past which were helpful we discussed the possibility of repeating these as well in the future. Patient would like to consider this at this time is requesting refill of hydrocodone last refill was July 2000 2150 tablets and patient is using them very sparingly and she is now exhausted that supply. Patient is had appropriate K tracks reporting as well as appropriate urinalyses as well to date. We discussed patient's intrathecal pump as well and patient reports he is having some increase spasticity overnight and we will have him follow-up with plans on reprogramming his flex settings for nighttime increase in spasticity as well. Patient is given instructions well side effects aware with the medication we will follow-up as scheduled for pump evaluation. Physical Exam: PE: PERRY TEJEDA MD Sep 29, 2021 09:19
== END | disposition home or self-care (01) ==
LOC: PNCL 08:57
PROVIDERS: ATTEND Anesthesiology
DX: M50.10 Cervical disc disorder with radiculopathy, unspecified cervical region (principal); M48.02 Spinal stenosis, cervical region; M96.1 Postlaminectomy syndrome, not elsewhere classified; F32.9 Major depressive disorder, single episode, unspecified; Z90.49 Acquired absence of other specified parts of digestive tract; Z98.890 Other specified postprocedural states; Z79.899 Other long term (current) drug therapy
CPT/HCPCS: 99212; G0463

== ENCOUNTER → 2021-10-27 | Outpatient (CLI) | payer OTHER, MEDICARE ==
[~2021-10-27] MED LIST changes: +BUPIVACAINE MPF 0.25% 10 ML VIAL. ONE; +DEXAMETHASONE PRES.FREE 10 MG/ML VIAL. ONE
--- NOTE | 2021-10-27 11:43 | PDOC ---
Progress Note - Pain Clinic Date of Service: DOS: DATE: 10/27/21 TIME: 11:36 Diagnosis: Dx: Cervical radiculopathy with cervical spinal stenosis and cervical postlaminectomy syndrome Spasticity Right elbow lateral epicondylitis History or Present Illness: HPI: 41-year-old male returns for follow-up status post intrathecal pump with baclofen with reports of increasing pain at night with spasticity mainly in the back and the hips. Patient also has complaint of right elbow pain with rotational motion twisting items such as tops of jars and lids as well as with sleeping on his right elbow also pain in the right shoulder without any specific injury or accident. Patient is using a manual wheelchair with some pain in both the shoulders but the right one is much more significant at this time. Patient reports pain overnight from spasticity generally fairly well controlled about 70 to 80% during the day but at night is much more severe and disturbing sleep. Patient reports no side effects with the medication and is tolerating intr athecal pump baclofen very well. Physical Exam: VS: Blood pressure 110/76 pulse 91 respirations 16 temperature 90.2 F height is 6 foot 3 inches weight is 177 pounds. PE: PHYSICAL EXAMINATION: GENERAL: The patient is awake, alert, oriented, appropriate, very pleasant in demeanor HEENT: Shows normocephalic, atraumatic. Extraocular movements are intact and symmetrical. Oral cavity: Mucous membranes moist and pink. Dentition is intact. NECK: Shows anterior throat supple without palpable lymphadenopathy noted. Swallow reflex symmetrical. CHEST: Shows normal on inspection. Breath sounds are clear bilaterally, distant but no rales rhonchi wheezes auscultated. HEART: Shows S1, S2 clear. No murmurs auscultated. ABDOMEN: Soft, nontender, nondistended. No palpable organomegaly is noted. Easily palpable intrathecal pump in the left lower quadrant with well-healed surgical scar. No rebound or guarding demonstrated. BACK: Shows spine grossly in the midline. Normal-appearing cervical lordotic curvature. There is slightly increased thoracic kyphosis, some minor flattening of the lumbar lordotic curvature. Lumbar paraspinous muscles show symmetrical on inspection, on palpation shows some moderate tenderness diffusely throughout the upper, middle and lower distribution of the paraspinous muscles without specific trigger points, without radiation of pain. The patient has good rotational motion of the lumbar spine, both laterally as well as extension and flexion without significant difficulty. EXTREMITIES: Upper extremities show deep tendon reflexes 2+ in the biceps and triceps tendons. Motor exam is 5 on a scale of 5 with right bottling supervisor, biceps and tricep flexion and 5/5 on the left. Peripheral pulses are 2+ radial. No peripheral edema is noted bilaterally. Upper extremities are warm and dry to touch, equal in color and appearance. Patient's right shoulder shows significant tenderness over the acromioclavicular joint as well as the anterior aspect of the humeral head and biceps groove. Right elbow shows significant tenderness with palpation on the lateral epicondyle with significant severe tenderness with direct pressure. Left side shows full rotation of the shoulder as well as the elbow without pain or discomfort. SKIN: Shows warm and dry, good turgor. No edema. No sores, rashes or bruising throughout. Procedure: Procedure: Options were discussed with patient. Patient's old chart was reviewed as his current medication regimen updated current review of systems updated today as well. We will reprogram patient's flex schedule on his intrathecal pump for longer distribution from the 8 PM to midnight time. To see if this may help him afford some better sleep with a total 24-hour dose remaining the same. We will proceed with right elbow lateral epicondylar joint injection. Risk were discussed including but not limited to bleeding infection possibility of intravascular injection sequelae spread of local anesthetic and numbness side effects of steroid medication and poor results regarding pain control. Patient understands wishes to proceed. Patient will return to clinic in approximately 4 weeks or sooner as necessary. Patient's pump refill date is January 12, 2022. Medication Injected: Med Injected: Patient sitting position with the right arm outstretched under sterile prep and drape right lateral epicondyle was palpated and locally anesthetized using 1% lidocaine using a 25-gauge needle the epicondylar joint was entered and after negative aspiration solution containing 0.25% bupivacaine 3 cc and total of 5 mg dexamethasone was injected. Needle was removed sterile bandage was applied. Patient tolerated procedure well and had no complications. Condition at Discharge: Condition at Discharge: Condition at discharge stable, paced tolerated procedure well had no complications. PERRY TEJEDA MD Oct 27, 2021 11:43
--- NOTE | 2021-10-27 11:44 | PDOC4 ---
Procedure Note: ICD 10 Code: ICD 10 Code: M 77.11 G8 0.1 Procedure Note: Patient was consented for right lateral epicondylar joint injection. Risk were discussed including not limited to bleeding infection possibility of intravascular injection sequelae spread local anesthetic and numbness side effects steroid medication portals regarding pain control. Patient understands wished to proceed. Patient sitting position with the right arm outstretched under sterile prep and drape right lateral epicondyle was palpated and locally anesthetized using 1% lidocaine using a 25-gauge needle the epicondylar joint was entered and after negative aspiration solution containing 0.25% bupivacaine 3 cc and total of 5 mg dexamethasone was injected. Needle was removed sterile bandage was applied. Patient tolerated procedure well and had no complications. PERRY TEJEDA MD Oct 27, 2021 11:44
--- NOTE | 2021-10-27 12:12 | RAD ---
EXAM: Right elbow, 3 views; right shoulder, 3 views. HISTORY: Pain. COMPARISON: None. FINDINGS: Right elbow: 3 views of the right elbow are obtained. There is no fracture, dislocation or subluxatio n. There is no joint effusion. Right shoulder: 3 views of the right shoulder obtained. There is no acute fracture, dislocation or garrett bluxation. There is a healed right clavicle fracture. There is partial visualization of inferior cerv ical spinal fusion instrumentation. IMPRESSION: No acute osseous finding. Electronically signed by: Alexia Smith MD (10/27/2021 12:10 PM) [id number]
== END | disposition home or self-care (01) ==
LOC: PNCL 10:16
PROVIDERS: ATTEND Anesthesiology
DX: M77.11 Lateral epicondylitis, right elbow (principal); M25.511 Pain in right shoulder; R25.2 Cramp and spasm; G80.1 Spastic diplegic cerebral palsy; M48.02 Spinal stenosis, cervical region; M96.1 Postlaminectomy syndrome, not elsewhere classified; M54.12 Radiculopathy, cervical region; F32.9 Major depressive disorder, single episode, unspecified; Z90.49 Acquired absence of other specified parts of digestive tract; Z98.890 Other specified postprocedural states; Z79.899 Other long term (current) drug therapy; Z72.89 Other problems related to lifestyle
CPT/HCPCS: 20605; 73030; 73080; J1100; J3490

== ENCOUNTER → 2022-01-16 | Outpatient (CLI) | payer OTHER, MEDICARE ==
--- NOTE | 2022-01-16 16:07 | PDOC ---
Progress Note - Pain Clinic Date of Service: DOS: DATE: 01/16/22 TIME: 16:00 Diagnosis: Dx: Cervical radiculopathy with cervical spinal stenosis cervical postlaminectomy syndrome Spasticity with intrathecal pump therapy Right elbow lateral epicondylitis History or Present Illness: HPI: 41-year-old male returns for follow-up status post intrathecal pump refill and reprogramming with baclofen as well as right lateral epicondylar joint injection patient reports that with the near 100% improvement after the joint injection right elbow which was in October 2021 but now with pain returning with repetitive motions and weightlifting and very items specially picking up his wheelchair with his right arm and flexion of the right elbow. Patient reports for several months he did very well with the pain returning now more recently over the past several weeks patient also is scheduled for intrathecal pump refill today and we will have that taken care with reprogramming with a flex programming also. Patient reports no side effects with medication he still taking hydrocodone when he needs it to help him sleep but is not taking every day. Patient reports no new motor or sensory deficits no new side effects with the medication. Patient rates his pain a 6 on a scale of 10 at its worst over t he past week fort[place] averaging 3 to [place] is a 4 today. Patient scribes aching shooting in the back and legs also the right shoulder and elbow with repetitive motions and weightbearing and lifting with the right arm as noted. Physical Exam: VS: Blood pressure is 102/66 pulse 77 respirations 16 temperature is 98.4 F height and weight are deferred as patient is in a wheelchair. PE: PHYSICAL EXAMINATION: GENERAL: The patient is awake, alert, oriented, appropriate, very pleasant in demeanor HEENT: Shows normocephalic, atraumatic. Extraocular movements are intact and symmetrical. Oral cavity: Mucous membranes moist and pink. Dentition is intact. NECK: Shows anterior throat supple without palpable lymphadenopathy noted. Swallow reflex symmetrical. CHEST: Shows normal on inspection. Breath sounds are clear bilaterally, distant no rales rhonchi or wheezes auscultated. HEART: Shows S1, S2 clear. No murmurs auscultated. ABDOMEN: Soft, nontender, nondistended. No palpable organomegaly is noted. Easily palpable intrathecal pump in the left lower quadrant with well-healed surgical scar noted BACK: Shows spine grossly in the midline. Normal-appearing cervical lordotic curvature. There is slightly increased thoracic kyphosis, some minor flattening of the lumbar lordotic curvature. Lumbar paraspinous muscles show symmetrical on inspection, on palpation shows some moderate tenderness diffusely throughout the upper, middle and lower distribution of the paraspinous muscles bilaterally and also into the lower thoracic paraspinous musculature, firm and tender, but without specific trigger points, without radiation of pain. The patient has good rotational motion of the lumbar spine, both laterally as well as extension and flexion without significant difficulty. No tenderness over the spinous processes, sacrum or sacroiliac regions. EXTREMITIES: Upper extremities show deep tendon reflexes 2+ in the bicep tricep tendons, motor exam strong with liner assembler strength rated 5 out of 5 as is bicep tricep flexion. Patient's right elbow shows significant tenderness over the lateral epicondyle with palpation over the joint and just medial to the joint as well as significant tenderness with palpation. No radiation is demonstrated with palpation. SKIN: Shows warm and dry, good turgor. No edema. No sores, rashes or bruising throughout. Procedure: Procedure: Options were discussed with the patient. Patient's chart was reviewed his current medication regimen updated current review of systems updated today as well. We will proceed with intrathecal pump refill and reprogramming with flex reprogramming as well, also proceed with right lateral epicondylar joint injection. Risk were discussed including not limited to bleeding infection possibility of intravascular injection sequelae spread local anesthetic numbness side effects steroid medication and poor results regarding pain control. Patient understands wished to proceed. Regarding patient's pump risk discussed including not limited to extravasation of medication bleeding infection and poor results regarding pain control as well. Patient understands and wished to proceed. Patient will return to clinic prior to June 07 which is the refill date for the intrathecal pump and as needed for any other concerns as well as right elbow pain. Medication Injected: Med Injected: Under sterile prep and drape patient's abdomen was prepped over the intrathecal pump, using a 22-gauge noncutting [employer] brand needle the pump was entered without difficulty. Aspiration showed removal of 2 cc of old medication which was discarded. 20 cc of new medication containing baclofen was then replaced. Needle was withdrawn and sterile bandage was applied;pump was then reprogrammed for volume as well as alarm settings and flex settings reprogrammed as well. Patient tolerated procedure well had no complications. Patient sitting position with the right arm outstretched under sterile prep and drape right lateral epicondyle was palpated and locally anesthetized using 1% lidocaine using a 25-gauge needle the epicondylar joint was entered and after negative aspiration solution containing 0.25% bupivacaine 3 cc and total of 5 mg dexamethasone was injected. Needle was removed sterile bandage was applied. Patient tolerated procedure well and had no complications. Condition at Discharge: Condition at Discharge: Condition at discharge stable, patient tolerated procedure well and had no complications. PERRY TEJEDA MD January 16, 2022 16:07
--- NOTE | 2022-01-16 16:08 | PDOC4 ---
Procedure Note: ICD 10 Code: ICD 10 Code: G8 0.1 M77.11 Procedure Note: Patient was consented for right epicondylar joint injection, and for pump refill and reprogramming. Under sterile prep and drape patient's abdomen was prepped over the intrathecal pump, using a 22-gauge noncutting [employer] brand needle the pump was entered without difficulty. Aspiration showed removal of 2 cc of old medication which was discarded. 20 cc of new medication containing baclofen was then replaced. Needle was withdrawn and sterile bandage was applied;pump was then reprogrammed for volume as well as alarm settings and flex settings reprogrammed as well. Patient tolerated procedure well had no complications. Patient sitting position with the right arm outstretched under sterile prep and drape right lateral epicondyle was palpated and locally anesthetized using 1% lidocaine using a 25-gauge needle the epicondylar joint was entered and after negative aspiration solution containing 0.25% bupivacaine 3 cc and total of 5 mg dexamethasone was injected. Needle was removed sterile bandage was applied. Patient tolerated procedure well and had no complications. PERRY TEJEDA MD January 16, 2022 16:07
== END | disposition home or self-care (01) ==
LOC: PNCL 14:07
PROVIDERS: ATTEND Anesthesiology
DX: M77.11 Lateral epicondylitis, right elbow (principal); G80.1 Spastic diplegic cerebral palsy; M48.02 Spinal stenosis, cervical region; M54.12 Radiculopathy, cervical region; M96.1 Postlaminectomy syndrome, not elsewhere classified; F32.9 Major depressive disorder, single episode, unspecified; Z90.49 Acquired absence of other specified parts of digestive tract; Z98.890 Other specified postprocedural states; Z79.899 Other long term (current) drug therapy; Z72.89 Other problems related to lifestyle
CPT/HCPCS: 20605; 95991; J1100; J3490